=== PATIENT | female | born 1950 | race Caucasian/White ===

== ENCOUNTER 2024-08-16 08:09 | Outpatient (OUT) | payer MEDICARE, OTHER, SELFPAY ==
--- OUTSIDE RECORDS SUMMARY | 2024-03-17 06:00 | XMS_ITS ---
Author Organization The [facility] in [place] Address [address] [place] [address] Care Team Providers Care Grocery Store Clerk Name Role Phone Karlie Robles Primary Care Provider Allergies Allergen (clinical drug ingredient) Drug/Non Drug Allergy documented on EMR Reaction Allergy Type Onset Date Status atorvastatin Atorvastatin Calcium Myalgias Drug Allergy Active rosuvastatin Crestor Myalgias Drug Allergy Acti ve Lisinopril cough Drug Allergy Active pravastatin Pravastatin Sodium Myalgias Drug Allergy Active [...] in the morning Orally Daily Active Ergocalciferol 79445 IU 1 tablet Orally weekly for 30 [...] stable Encounters Encounter Location Date Provider Diagnosis [facility] [address] [place] [address] 03/17/2024 Karlie Robles Type 1 diabetes mellitus [...] Donnelly es, 10/12/2024 09:00:00 AM, [address] [place], [address], Progress Notes * Thania CURRIE LDOB:[birth year] (73 yo F)Acc No.[id number]:03/17/2024 Established Patient: Gianfranco Thania GARLAND Provider: Daniela Robles MD :1950 A ge:73 Y S ex:Female Date:03/17/2024 Address:[facility] [address], [place], [place]-[id number] Check In:10:02 AM ESTCheck O ut:10:51 AM [...] heart for calcium scoring soon, ordered by fabián. Will obtain from [facility] LDL from recent labs was elevated at 139. She did try zetia for 2 weeks after last visit - she states she noted SOB with it, and decided to stop it. States she had her mamm in October 2023, thru Dr. Montoya - we will obtain this from [facility] also. 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 Modified On:06/25/2020U Status:confirmed I10 Essential hypertensi on Modified On:11/24/2021 Status:confirmed Z68.34 BMI 34.0-34.9,adult Modified On:04/04/2019U Status:confirmed E66.9 Obesity (BMI 30-39.9 ) Modified On:07/30/2021 Status:confirmed Z68.36 BMI 36.0-36.9,adult Modified On:07/30/2021 Status:confirmed Z68.37 BMI 37.0-37.9, adult Modified On:11/24/2021 Status:confirmed G89.29 Other chronic pain Modified On:11/10/2022U Status:confirmed M25.561 Pain in right knee Modified On:12/01/2022 Status:confirmed * Medical History: * Surgical History: P artial hysterectomy - still has tubes and ovaries (Dr. Hayes) 2005Le Breast biopsy - DCIS (Dr. Pedro) 11/25Le Partial knee replacement (Dr. Jones - [place]) 03/29Lipoma removal ilat cataract removals 01/30 * Hospitalization/Major Diagno stic Procedure: N o Hospitalization History. * Family History: F ather: . M other: , Multiple Myloma, diagnosed with Other malignant neoplasm of unspecified site. 1 son(s) , 1 daughter(s) - healthy. . * Social History: T obacco Use: T obacco Use/Smoking P atient is a n onsmoker * Medications: T akingErgocalciferol 53639 IU Tablet 1 tablet Orally weekly Levothyroxine Sodium 137 MG Tablet 1 tablet on an empty stomach in the morning Orally Daily Multi Vitamin - Tablet 1 tablet Orally Once a day NovoLOG(Insulin Aspart) 100 UNIT/ML Solution as directed Subcutaneous Taking Ergocalciferol 75884 IU Tablet 1 tablet Orally weekly Taking [...] 03/17/2024 Generated for Prema garcia/Pollo/Enedinaitting on: 0 08/16/2024 08:16 AM EDT History and Physical Notes * [...]
--- OUTSIDE RECORDS SUMMARY | 2024-06-29 05:30 | XMS_ITS ---
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 Name Role Phone Karlie Robles Primary Care Provider [phone] Allergies Allergen (clinical drug ingredient) Drug/Non Drug Allergy documented on EMR Reaction Allergy Type Onset Date Status atorvastatin Atorvastatin Calcium Myalgias Drug Allergy Active rosuvastatin Crestor Myalgias Drug Allergy Acti ve Lisinopril cough Drug Allergy Active pravastatin Pravastatin Sodium Myalgias Drug Allergy Active simvastatin Simvastatin Myalgias Drug Allergy Act zulma tamoxifen Tamoxifen Citrate Flu-like symptoms Drug Allergy Active Reason For Referral Reason Eval and treat for H yperlipidemia, unable to tolerate statins - also diabetic Diagnosis 1 Mixed hyperlipidemia (E78.2) Referral Organization [facility] Referring Provider First Name Karlie Referring Provider Last Name Margaret Referring Provider Speciality [facility] Referred Provider Specialty Cardiology General Notes Karlie Robles 06:52:36 AM >Please refer to Cardio group in [place] (from [facility]), Karlie Robles 07/27/2024 06:52:59 AM >Attach most recent labs and most recent Endo note as well Referral Priority Routine REASON FOR VISIT MWV Medications Medication SIG (Take, Route, Frequency, Duration) Notes Start Date End Date Status Ergocalciferol 55267 IU 1 tablet Orally weekly for 30 days 03/20/2019 Not-Taking NovoLOG 100 UNIT/ML as directed Subcutaneous Active Multi Vitamin - 1 tablet Orally Once a day for 30 day(s) Active Levothyroxine Sodium 137 MG Tablet 1 tablet on an empty stomach in the morning Orally Daily Active Tresiba 100 UNIT/ML 40U if not on insuli n pump Subcutaneous PRN Not-Taking Social History Tobacco Use: Social History Observation Description Date Details (start date - stop date) Never Smoker NA - NA Tobacco Use/Smoking Question Answer Notes Patient is a nonsmoker Vital Signs Weight 218 lbs 06/29/2024 Height 63.50 in 06/29/2024 Blood pressure systolic 132 mm Hg 06/30/19 25 Blood pressure diastolic 68 mm Hg 025 Heart Rate 54 /min 06/29/2024 Respiratory Rate 16 /min 06/29/2024 BMI 38.01 kg/m2 06/29/2024 Oximetry 96 % 06/29/2024 Encounters Encounter Location Date Provider Diagnosis [facility] [address] [place] [address] 06/29/2024 Karlie Robles Type 1 diabetes mellitus with hyperglycemia E10.65 ; Other specified health status Z78.9 ; Mixed hyperlipidemia E78.2 ; Acquired hypothyroidism E03.9 ; Vitamin D deficiency E55.9 ; Pain in right knee M25.561 and Encounter for Medicare annual wellness exam Z00.00 Assessments Encounter Date Diagnosis (ICD Code) Assessment Notes Treatment Notes Treatment Clinical Notes Section Notes 06/29/2024 Type 1 diabetes mellitus with hyperglycemia (ICD-10 - E10.65) Stable, continue current meds, and follow up with Endocrinology as directed 06/29/2024 Other specified health status (ICD-10 - Z78.9) Unable to tolerate statins due to myalgias, with multiple statins! Refer to Cardio for further input, especially since you are a diabetic 06/29/2024 Mixed hyperlipidemia (ICD-10 - E78.2) Will refer to Cardio at [facility] [place] for further recommendations about cholesterol med, particularly since you are a diabetic! Unable to tolerate statins 06/29/2024 Acquired hypothyroidism (ICD-10 - E03.9) Stable, continue current med 06/29/2024 Vitamin D deficiency (ICD-10 - E55.9) Make sure you are taking a daily Vitamin D supplement, and consider checking Vit D with next labs 06/29/2024 Pain in right knee (ICD-10 - M25.561) Follow up with ortho about knee pain 06/29/2024 Encounter for Medicare annual wellness exam (ICD-10 - Z00.00) UTD with labs, mamm. Will be due for cologuard in December - order at next visit. Please update pneumonia vaccine at pharmacy at your convenience Plan Of Treatment Treatment Notes Assessment Notes Type 1 diabetes mellitus wit h hyperglycemia Stable, continue current meds, and follo w up with Endocrinology as directed Other specified health status Unable to tolerate statins due to myalgias, with multiple statins! Refer to Cardio for further input, especially since you are a diabetic Mixed hyperlipidemia Will refer to Cardio at [facility] for further recommendations about cholesterol med, particularly since you are a diabetic! Unable to tolerate statins Acquired hypothyroidism Stable, continue current med Vitamin D deficiency Make sure you are t aking a daily Vitamin D supplement, and consider checking Vit D with next labs Pain in right knee Follow up with ortho about knee pain Encounter for Medicare oliva luis wellness exam UTD with labs, mamm. Will be due for cologuard in December - order at next visit. Please update pneumonia vaccine at pharmacy at your convenience Referrals Referral Date Details 07/27/2024 07/27/2024, Eval and treat for Hyperlipidemia, unable to tolerate statins - also diabetic Next Appt Details Follow Up: 3-4 Months, Reaso n: DM, HLD Provider Name:Karlie Donnelly es, 10/12/2024 09:00:00 AM, [address] [place], [address], Progress Notes * Thania CURRIE LDOB:[birth year] (73 yo F)Acc No.[id number]:06/29/2024 Progress Note Patient: Thania DELGADILLO Provider: Daniela Robles MD :1950 A ge:73 Y S ex:Female Date:06/29/2024 Address:[facility] [address], [place] , [id number] Check In:09:30 AM ESTCheck O ut:10:27 AM EST Subjective: * Chief Complaints: * [place] * HPI: G eneral: patient presents today for medicare wellness visit, patinet states she seen endocrinology recently and they were concerned about her lab work - RM 73yo female presents for [facility] Endo is concerned about her LDL being way above goal and pt not being able to tolerate statin. Will refer to Cardio for further recommendation and treatment, likely with repatha or other new injectable - would like go to [place] Having more right knee pain - thinking about going back to ortho Has not been taking the Vitamin D weekly, just MV that has some Vit D in it. I encouraged her to add a Vit D3 daily - I dont' see that we have checked Vit D since 2020 Will be having Ambrosio procedure on left eye on September 05 Had mamm at [facility] in October 2023, by Dr. Montoya - just saw onc last week and will be having mamm in Nov Last cologuard was 12/30, so will be due in 01/02 Will be done babysitting for her grandkids. Doing well on pump. Gianfranco yo Annual Wellness Visit: Type of Visit: S karen Annual Wellness Visit (SAWV).? Visual Acuity: N /A. Other Providers of Care: C are Team reviewed with patient: Ana calvillo, and no updates needed Physical Activity: D o you exercise regularly? Y karli T ype of exercise: _ __ F requency: _ __ Nutrition/Diet: O n a typical day, how many servings of fruits and vegetables do you consume? 2 I n a typical week, how many servings of fried or high fat (such as cheese, fatty meat) do you consume? 3 I n a typical week, how many servings of high fiber or whole grain foods do you consume? 0 Seat Belt: D o you always use your seat belt in your car??No A re you having difficulties driving your car??No C an you get to places out of walking distance without help? Y es Dental: H ow would you describe the condition of your mouth and teeth, including any false teeth or dentures? G ood Medication List Follow-Up: D uring the past four weeks, how much bodily pain do you have? M ild pain D o you have a current opioid prescription??No Self Assessment of Health: H ow would you rate your overall health the past four weeks? G ood H ow confident are you that you can control and manage most of your health problems? V ysabel confident H ow have things been going for you during the past four weeks? Rylee ysabel well; could hardly be better D uring the past four weeks, was someone available to help you if you needed and wanted help? Y es, as much as I wanted (Example: if you felt nervous, lonely, or blue; got sick and had to stay in bed; needed someone to talk to; help with daily chores; or needed help just taking care of yourself) D o you have any sexual problems? N o D o you have any troubles eating well? N o D o you have any problems with tiredness or fatigue? N o H ave you noticed any hearing difficulties??Yes Sun Exposure: D o you protect yourself from over exposure to the sun when outdoors? Y es Mental Wellness: D uring the past four weeks, how much have you been bothered by emotional problems such as feeling anxious, depressed, irritable, sad, or downhearted and blue? S lightly D uring the past four weeks, has your physical and emotional health limited your social activities with family, friends, neighbors, or groups??Not at all Functional Ability and Safety Screening: D o you need assistance with any of the following? Select all that apply. N one D oes your home have rugs in the hallway, lack grab bars in the bathroom, lack handrails on the stairs or have poor lighting? N o D o you feel unsteady and/or dizzy when standing or walking? N o D o you have smoke detectors in your home and routinely change the batteries? Y es D o you have a fire extinguisher and know how to use it properly? Y es D o you have any problems with your living situation, food, transportation, utilities, or safety? N o Cognitive Screening: H ave you experienced any memory issues or problems with thinking? N o H ave your family members, friends, caretakers, or others raised any concerns? N o D o you get confused or easily distracted more than you used to? Y es H as your ability to concentrate seem to have declined recently? N o End of Life Planning: D o you have a living will? Y es D o you have a Durable Power of Outside Machinist Helper? Y es W ould you like to discuss this topic today??No SDOH A gree to complete Social Determinants of Health questionnaire Y es W ithin the past 12 months, did you worry that your food would run out before you got money to buy more? N o W ithin the past 12 months, did the food you bought just not last and you didn't have money to buy more? N o W ithin the past 12 months, have you ever stayed: outside, in a car, in a a tent, in an overnight intermediate, or temporarily in someone else's home??No A re you worried about losing your housing??No W ithin the past 12 months, have you been able to get utilities (heat, electricity) when it was really needed? Y es W ithin the past 12 months, has a lack of transportation kept you from medical appointments or from doing things needed for daily living? N o D o you feel physically or emotionally unsafe where you currently live? N o W ould you like help with any of these needs that you have identified? N o D epression Screening: PHQ-2 (2015 Edition) L ittle interest or pleasure in doing things??Not at all F eeling down, depressed, or hopeless? N ot at all T otal Score 0 * ROS: G eneral/Constitutional: Chills d enies. [...] Body aches D enies. P ainful joints a dmits. W eakness d enies. S kin: Rash d enies. N eurologic: Dizziness d enies. H eadache d enies. ? P sychiatric: Depression d enies. A nxiety d enies. D ifficulty sleeping d enies. 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 Modified On:06/25/2020U Status:confirmed I10 Essential hypertensi on Modified On:11/24/2021 Status:confirmed Z68.34 BMI 34.0-34.9,adult Modified On:04/04/2019 Status:confirmed E66.9 Obesity (BMI 30-39.9 ) Modified On:07/30/2021 Status:confirmed Z68.36 BMI 36.0-36.9,adult Modified On:07/30/2021 Status:confirmed Z68.37 BMI 37.0-37.9, adult Modified On:11/24/2021 Status:confirmed G89.29 Other chronic pain Modified On:11/10/2022 Status:confirmed M25.561 Pain in right knee Modified On:12/01/2022 Status:confirmed * Medical History: * Surgical History: P artial hysterectomy - still has tubes and ovaries (Dr. Hayes) 2005Left Breast biopsy - DCIS (Dr. Pedro) 11/25Le Partial knee replacement (Dr. Jones - [place]) 03/29Lipoma removal ilat cataract removals 01/30 * Hospitalization/Major Diagno stic Procedure: N o Hospitalization History. * Family History: F ather: . M other: , Multiple Myloma, diagnosed with Other malignant neoplasm of unspecified site. 1 son(s) , 1 daughter(s) - healthy. . * Social History: T obacco Use: T obacco Use/Smoking P atient is a n onsmoker * Medications: T akingLevothyroxine Sodium 137 MG Tablet 1 tablet on an empty stomach in the morning Orally Daily Multi Vitamin - Tablet 1 tablet Orally Once a day NovoLOG(Insulin Aspart) 100 UNIT/ML Solution as directed Subcutaneous Taking Levothyroxine Sodium 137 MG Tablet 1 tablet on an empty stomach in the morning Orally Daily Taking Multi Vitamin - Tablet 1 tablet Orally Once a day Taking NovoLOG(Insulin Aspart) 100 UNIT/ML Solution as directed Subcutaneous Not-Taking/PRNErgocalciferol 16153 IU Tablet 1 tablet Orally weekly Tresiba(Insulin Degludec) 100 UNIT/ML Solution 40U if not on insulin pump Subcutaneous PRN Medication List reviewed and reconciled with the patientNot-Taking/PRN Ergocalciferol 74394 IU Tablet 1 tablet Orally weekly Not-Taking/PRN Tresiba(Insulin Degludec) 100 UNIT/ML Solution 40U if not on insulin pump Subcutaneous PRN Medication List reviewed and reconciled with the patient * Allergies: T amoxifen Citrate: Flu-like symptoms - Side EffectsAtorvastatin Calcium: Myalgias - Side EffectsLisinopril: cough - Side EffectsPravastatin Sodium: Myalgias - Side EffectsSimvastatin: MyalgiasCrestor: Myalgiasno[Allergies Verified] Objective: * Vitals: W t:218lbs, Ht: 63.50 in, BP:132/68mm Hg, HR:54/min, RR:16/min, BMI:38.01Index, Oxygen sat %:96%, Ht-cm: 161.29 cm, Wt-k.88 kg. * Examination: G eneral Examination: GENERAL APPEARANCE: [...] with hyperglycemia - E10.65 (Primary) 2 . O ther specified health status - Z78.9 S pecify :Statin intolerance 3 . M ixed hyperlipidemia - E78.2 4 . A cquired hypothyroidism - E03.9 5 . V itamin D deficiency - E55.9 6 . P ain in right knee - M25.561 7 . E ncounter for Medicare annual wellness exam - Z00.00? Plan: * Treatment: 2. O ther specified health status Notes: Unable to tolerate statins due to myalgias, with multiple statins! Refer to Cardio for further input, especially since you are a diabetic 3. M ixed hyperlipidemia Notes: Will refer to Cardio at [facility] for further recommendations about cholesterol med, particularly since you are a diabetic! Unable to tolerate statins Referral To:Cardiology Reason:Eval and treat for Hyperlipidemia, unable to tolerate statins - also diabetic 4. A cquired hypothyroidism Notes: Stable, continue current med 5. V itamin D deficiency Notes: Make sure you are taking a daily Vitamin D supplement, and consider checking Vit D with next labs 6. P ain in right knee Notes: Follow up with ortho about knee pain 7. E ncounter for Medicare annual wellness exam Notes: UTD with labs, mamm. Will be due for cologuard in December - order at next visit. Please update pneumonia vaccine at pharmacy at your convenience * Procedure Codes: G 0439 ANNUAL WELLNESS, SUBSEQ * Preventive Medicine: Screenings/Counseling: F ALL RISK SCREENING Fall Risk Assessment: N o falls in the past year Are you afraid of falling? N o * Follow Up: 3 -4 Months (Reason: DM, HLD) * * Sign off status: Completed Visit Status: C HK (Check Out) true * Provider: Daniela Robles MD Date: 0 06/29/2024 Generated for Prema garcia/Pollo/Enedinaitting on: 0 08/16/2024 08:16 AM EDT History and Physical Notes * HPI (History of Present Illness) Category Sub-Category Detail Notes Category Not es Medicare Annual Wellness Visit Type of Visit: Subsequent Annual Wellness Visit (SAWV) Cognitive Screening: Have you experience d any memory issues or problems with thinking?: No Have your family members, fr iends, caretakers, or others raised any concerns?: No Do you get confused or easily distracted more than you used to?: Yes Has your ability to concentrate seem to have declined recently?: No Self Assessment of Health: How would you rate your overall health the past four weeks?: Good How confident are you that y ou can control and manage most of your health problems?: Very confident How have things been going f or you during the past four weeks?: Very well; could hardly be better During the past four weeks, was someone available to help you if you needed and wanted help?: Yes, as much as I wanted (Example: if you felt nervous, lonely, o r blue; got sick and had to stay in bed; needed someone to talk to; help with daily chores; or needed help just taking care of yourself) Do you have any sexual problems?: No Do you have any troubles eating well?: N o Do you have any problems wit h tiredness or fatigue?: No Have you noticed any hearing difficulties?: Yes Physical Activity: Do you exercise regularly?: Y es Type of exercise:: ___ Frequency:: ___ Functional Ability and Safety Screening: Do you need assistance with any of the following? Select all that apply.: None Does your home have rugs in the hallway, lack grab bars in the bathroom, lack handrails on the stairs or have poor lighting?: No Do you feel unsteady and/or dizzy when s tanding or walking?: No Do you have smoke detectors in your home and routinely change the batteries?: Yes Do you have a fire extinguisher and know how to use it properly?: Yes Do you have any problems wit h your living situation, food, transportation, utilities, or safety?: No Visual Acuity: N/A Nutrition/Diet: On a typical day, ho w many servings of fruits and vegetables do you consume?: 2 In a typical week, how many servings of fried or high fat (such as cheese, fatty meat) do you consume?: 3 In a typical week, how many servings of high fiber or whole grain foods do you consume?: 0 Seat Belt: Do you always use your seat belt in your car?: No Are you having difficulties driving your car?: No Can you get to places out of walking dis tance without help?: Yes Dental: How would you descri be the condition of your mouth and teeth, including any false teeth or dentures?: Good Medication List Follow-Up: During the four weeks, how much bodily pain do you have?: Mild pain Do you have a current opioid prescriptio n?: No Mental Wellness: During the past four weeks, how much have you been bothered by emotional problems such as feeling anxious, depressed, irritable, sad, or downhearted and blue?: Slightly During the past four weeks, has your physical and emotional health limited your social activities with family, friends, neighbors, or groups?: Not at all Sun Exposure: Do you protect yours elf from over exposure to the sun when outdoors?: Yes End of Life Planning: Do you have a living will? : Yes Do you have a Durable Power of Outside Machinist Helper? : Yes Would you like to discuss this topic tod ay?: No Other Providers of Care: Care Team mary bee with patient:: Yes, and no updates needed SDOH Agree to complete [facility] Determinants of Health questionnaire: Yes Within the past 12 months, did you worry that your food would run out before you got money to buy more?: No Within the past 12 months, did the food you bought just not last and you didn't have money to buy more?: No Within the past 12 months, have you ever stayed: outside, in a car, in a a tent, in an overnight intermediate, or temporarily in someone else's home?: No Are you worried about losing your housing?: No Within the past 12 months, have you been able to get utilities (heat, electricity) when it was really needed?: Yes Within the past 12 months, has a lack of transportation kept you from medical appointments or from doing things needed for daily living?: No Do you feel physically or emotionally unsafe where you currently live?: No Would you like help with any of these needs that you have identified?: No Depression Screening PHQ-2 (2015 Edition) Little interest or pleasure in doing things?: Not at all Feeling down, depressed, or hopeless?: N ot at all Total Score: 0 Examination Category Sub-Category Detail Notes Category Not [...] NEUROLOGIC/PSYCHIATRIC: Alert, Oriented, mood and affect appropriate Consultation Request Notes Referral Date Referring Provider Referred Provider Not es 07/27/2024 Karlie Robles Eval and disha velasquez for Hyperlipidemia, unable to tolerate statins - also diabetic
--- OUTSIDE RECORDS SUMMARY | 2024-08-01 09:39 | XMS_ITS ---
Author Organization [facility] in [place] Address [address] [place] [address] Care Team Providers Care Quill Cleaning Machine Operator Name Role Phone Karlie Robles Primary Care Provider REASON FOR VISIT referral issue Encounters Encounter Location Date Provider Diagnosis [facility] [address] [place] [address] 08/01/2024 Karlie Robles Plan Of Treatment Next Appt Details Provider Name:Karlie Donnelly es, 10/12/2024 09:00:00 AM, [address] [place], [address], Progress Notes * Thania CURRIE LDOB:[birth year] (73 yo F)Acc No.[id number]:08/01/2024 Patient: Gianfranco Thania GAR[place] :1950 A ge:73 Y S ex:Female Address:[place] [address] * true * Date: Generated for Printi ng/Faxing/eTransmitting on: 0 08/16/2024 08:16 AM EDT
--- OUTSIDE RECORDS SUMMARY | 2024-08-16 08:17 | XMS_ITS | Patient Health Record ---
Author Organization [facility] in [place] Address [address] [place] [address] Care Team Providers Care Furniture Cleaner Name Role Phone Karlie Robles Primary Care Provider Allergies Allergen (clinical drug ingredient) Drug/Non Drug Allergy documented on EMR Reaction Allergy Type Onset Date Status Atorvastatin Calcium Myalgias Drug Allergy Active Crestor Myalgias Drug Allergy Active Lisinopril cough Drug Allergy Active Pravastatin Sodium Myalgias Drug Allergy Active Simvastatin Myalgias Drug Allergy Activ e Tamoxifen Citrate Flu-like symptoms Drug Allergy Active Reason For Referral Reason Eval and treat for H yperlipidemia, unable to tolerate statins - also diabetic Diagnosis 1 Mixed hyperlipidemia (E78.2) Referral Organization [facility] Referring Provider First Name Karlie Referring Provider Last Name Margaret Referring Provider Speciality [facility] Referred Provider Specialty Cardiology General Notes Karlie Robles 06:52:36 AM >Please refer to Cardio group in [place] (from [facility]), Karlie Robles 07/27/2024 06:52:59 AM >Attach most recent labs and most recent Endo note as well Referral Priority Routine Medications Medication SIG (Take, Route, Frequency, Duration) Notes Start Date End Date Status Ergocalciferol 16294 IU 1 tablet Orally weekly for 30 days 03/20/2019 Not-Taking NovoLOG 100 UNIT/ML as directed Subcutaneous Active Multi Vitamin - 1 tablet Orally Once a day for 30 day(s) Active Levothyroxine Sodium 137 MG Tablet 1 tablet on an empty stomach in the morning Orally Daily Active Tresiba 100 UNIT/ML 40U if not on insuli n pump Subcutaneous PRN Not-Taking Immunizations Vaccine Route Administration Date Status Comme nts Pneumococcal (Pneumovax 23) Unknown 12/07/2016 Administ ered Pneumococcal (Prevnar 13) Unknown 12/05/2015 Administer ed Tdap Unknown 07/23/2021 Administered given in ER Social History Tobacco Use: Social History Observation Description Date Details (start date - stop date) Never Smoker NA - NA Tobacco Use/Smoking Question Answer Notes Patient is a nonsmoker Alcohol Screen (Audit-C) Question Answer Notes Did you have a drink containing alcohol in the p ast year? No Points 0 Interpretation Negative Problems Problem Type SNOMED Code ICD Code Onset Dates Problem Status W/U Status Risk Notes Problem 473488682840931 Type 1 diabetes mellitus with hyperglycemia (E10.65) Active confirmed Problem 311041752 Mixed hyperlipidemia (E78.2) Active confirmed Problem 91037382 Other chronic pa in (G89.29) Active confirmed Problem 2467691052 Pain in right kn ee (M25.561) Active confirmed Problem 91164921 Essential hypertension (I10) Active confirmed Problem 240625532 Obesity (BMI 30-39.9) (E66.9) Active confirmed Problem 98782959 Vitamin D deficiency (E55.9) Active confirmed Problem 360827525 BMI 37.0-37.9, adult (Z68.37) Active confirmed Problem 260893179 Acquired hypothyroidism (E03.9) Active confirmed Problem 304767220 BMI 34.0-34.9,adult (Z68.34) Active confirmed Problem 641538452 BMI 36.0-36.9,adult (Z68.36) Active confirmed Problem 332224977 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 [address] [place] [address] [facility] [address] [place] [address] 11/03/2023 Karlie Robles Type 1 diabetes mellitus with hyperglycemia E10.65 ; Mixed hyperlipidemia E78.2 ; Acquired hypothyroidism E03.9 and 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 [facility] [address] [place] [address] 03/17/2024 Karlie Robles Type 1 diabetes mellitus with hyperglycemia E10.65 ; Mixed hyperlipidemia E78.2 ; Acquired hypothyroidism E03.9 and 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 [facility] [address] [place] [address] 06/29/2024 Karlie Robles Type 1 diabetes mellitus with hyperglycemia E10.65 ; Other specified health status Z78.9 ; Mixed hyperlipidemia E78.2 ; Acquired hypothyroidism E03.9 ; Vitamin D deficiency E55.9 ; Pain in right knee M25.561 and Encounter for Medicare annual wellness exam Z00.00 Assessments Encounter Date Diagnosis (ICD Code) Assessment Notes Treatment Notes Treatment Clinical Notes Section Notes 11/03/2023 Type 1 diabetes mellitus with hyperglycemia (ICD-10 - E10.65) Improving,Continue to follow up with endocrinology 11/03/2023 Mixed hyperlipidemia (ICD-10 - E78.2) Encouraged pt to try the zetia daily for at least 1 to 2 weeks, to really give it a try. -discussed again that it is a different class of cholesterol med, NOT a statin like the other meds that she has had trouble with in the past. -Get bloodwork after taking the med for 2-3months (or before next visit) 03/17/2024 Type 1 diabetes mellitus with hyperglycemia (ICD-10 - E10.65) Continue current management and follow up with Endo as directed We will be watching for the CT for calcium score 03/17/2024 Mixed hyperlipidemia (ICD-10 - E78.2) May need to refer on to cardio if calcium score is high to discuss other options for cholesterol control, with your diabetes 06/29/2024 Type 1 diabetes mellitus with hyperglycemia (ICD-10 - E10.65) Stable, continue current meds, and follow up with Endocrinology as directed 06/29/2024 Other specified health status (ICD-10 - Z78.9) Unable to tolerate statins due to myalgias, with multiple statins! Refer to Cardio for further input, especially since you are a diabetic 06/29/2024 Mixed hyperlipidemia (ICD-10 - E78.2) Will refer to Cardio at [place] for further recommendations about cholesterol med, particularly since you are a diabetic! 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 (ICD-10 - D17.1) Stable, continue to monitor 06/29/2024 Acquired hypothyroidism (ICD-10 - E03.9) Stable, [...] pharmacy at your convenience Plan Of Treatment Pending Test Test Name Order Date LIPID PANEL (CHOL/TRIG/HDL/LDL) 06/24/19 24 Next Appt Details Provider Name:Karlie calvillo, 10/12/2024 09:00:00 AM, [address] [facility] [place], [address], Insurance Providers Payer Name Payer Address Payer Phone Subscriber Number Group Number Insured Name Patient Relationship to Insured Coverage Start Date Coverage End Date [place] [address] [place] [address] [id number] Thania Spicer Self - patient is the insured 9 MMO [address] [place], [place] [id number] Thania Spicer Self - patient is the insured 9 Medical (General) History Medical History History ICD Code Diabetes type 1 - Sees [facility] DCIS of left breast, ERPR+, 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 Hayes) 2005 Left Breast biopsy - DCIS (Dr. Pedro) 1 Left Partial knee replacement (Dr. Inna barros - [place]) 03/29 Lipoma removal 2021 Bilat cataract removals 01/30
[2024-08-16 08:56] LABS: Alanine Aminotransferase 23 U/L (14-59); Albumin Globulin Ratio 0.9; Albumin Level 3.1 g/dL (3.4-5.0); Alkaline Phosphatase 94 U/L (46-116); Anion Gap 13.9; Aspartate Amino Transferase 15 U/L (15-37); Blood Urea Nitrogen 20.0 mg/dL (7.0-18.0); Calcium 9.0 mg/dL (8.5-10.1); Carbon Dioxide 27.9 mmol/L (21.0-32.0); Chloride 108 mmol/L (98-107); Cholesterol 202 mg/dL (<=200); Estimated GFR (African America >60 (>=60 mL/min/1.73m^2); Estimated GFR (Non-African Ame >60 (>=60 mL/min/1.73m^2); Globulin 3.6 g/dL; Glucose 123 mg/dL (74-106); HDL Cholesterol 41 mg/dL (40-60); Potassium 3.8 mmol/L (3.5-5.1); Sodium 146 mmol/L (136-145); Total Protein 6.7 g/dL (6.4-8.2); Triglycerides 145 mg/dL (<=150); VLDL CHOLESTEROL 29.0 mg/dL
== END 2024-08-16 08:10 | disposition home or self-care (01) ==
PROVIDERS: PCP Family Medicine; Visit Provider Internal Medicine Interventional Cardiology
DX: E78.2 Mixed hyperlipidemia (principal)
CPT/HCPCS: 36415; 80053; 80061

== ENCOUNTER 2024-08-22 12:19 | Outpatient (OUT) | payer MEDICARE, OTHER, SELFPAY ==
--- OUTSIDE RECORDS SUMMARY | 2024-03-17 06:00 | XMS_ITS ---
Author Organization The [facility] in [place] Address [address] [place] [address] Care Team Providers Care Museum Host/Hostess Name Role Phone Karlie Robles Primary Care Provider Allergies Allergen (clinical drug ingredient) Drug/Non Drug Allergy documented on EMR Reaction Allergy Type Onset Date Status atorvastatin Atorvastatin Calcium Myalgias Drug Allergy Active rosuvastatin Crestor Myalgias Drug Allergy Acti ve lisinopril Lisinopril cough Drug Allergy Activ e pravastatin Pravastatin Sodium Myalgias Drug Allergy Active simvastatin Simvastatin Myalgias Drug Allergy Act zulma tamoxifen Tamoxifen Citrate Flu-like symptoms Drug Allergy Active REASON FOR VISIT 3 month follow up Medications Medication SIG (Take, Route, Frequency, Duration) Notes Start Date End Date Status Tresiba 100 UNIT/ML 40U if not on insuli n pump Subcutaneous PRN Not-Taking Multi Vitamin - 1 tablet Orally Once a day for 30 day(s) Active NovoLOG 100 UNIT/ML as directed Subcutaneous Active Levothyroxine Sodium 137 MG Tablet 1 tablet on an empty stomach in the morning Orally Daily Active Ergocalciferol 54550 IU 1 tablet Orally weekly for 30 days 03/20/2019 Active Social History Tobacco Use: Social History Observation Description Date Details (start date - stop date) Never Smoker NA - NA Tobacco Use/Smoking Question Answer Notes Patient is a nonsmoker Vital Signs Weight 218 lbs 03/17/2024 Height 63.50 in 03/17/2024 Blood pressure systolic 138 mm Hg 03/17/19 25 Blood pressure diastolic 62 mm Hg 025 Heart Rate 74 /min 03/17/2024 Respiratory Rate 16 /min 03/17/2024 BMI 38.01 kg/m2 03/17/2024 Oximetry 95 % 03/17/2024 weight and bp stable Encounters Encounter Location Date Provider Diagnosis [facility] [address] [place] [address] 03/17/2024 Karlie Robles Type 1 diabetes mellitus with hyperglycemia E10.65 ; Mixed hyperlipidemia E78.2 ; Acquired hypothyroidism E03.9 and 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 Assessments Encounter Date Diagnosis (ICD Code) Assessment Notes Treatment Notes Treatment Clinical Notes Section Notes 03/17/2024 Type 1 diabetes mellitus with hyperglycemia (ICD-10 - E10.65) Continue current management and follow up with Endo as directed We will be watching for the CT for calcium score 03/17/2024 Mixed hyperlipidemia (ICD-10 - E78.2) May need to refer on to cardio if calcium score is high to discuss other options for cholesterol control, with your diabetes 03/17/2024 Acquired hypothyroidism (ICD-10 - E03.9) Stable 03/17/2024 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 (ICD-10 - D17.1) Stable, continue to monitor Plan Of Treatment Treatment Notes Assessment Notes Type 1 diabetes mellitus with hyperglyce kana Continue current management and follow up with Endo as directed We will be watching for the CT for calcium score Mixed hyperlipidemia May need to refer o n to cardio if calcium score is high to discuss other options for cholesterol control, with your diabetes Acquired hypothyroidism Stable Benign lipomatous neoplasm o f skin and subcutaneous tissue of trunk Stable, continue to monitor Next Appt Details Follow Up: 3 Months, sooner if needed, Reason: DM, HLD Provider Name:Karlie Donnelly es, 10/12/2024 09:00:00 AM, [address] [place], [address], Progress Notes * Thania CURRIE LDOB:[birth year] (73 yo F)Acc No.[id number]:03/17/2024 Established Patient: Thania DELGADILLO Provider: Daniela Robles MD :1950 A ge:73 Y S ex:Female Date:03/17/2024 Address:[address] [place] [address] , [place], [id number] Check In:10:02 AM ESTCheck O ut:10:51 AM EST Subjective: * Chief Complaints: * 3 month follow up * HPI: G eneral: Patient presents today for 3 month follow up. Patient states she recently had labs done with endo(labs in chart). She also states she has a CT calcium scoring coming up.-MV 73yo female presents for 4month follow up. Had recent labs thru Endo and brought those results for us Will be having a CT heart for calcium scoring soon, ordered by endo. Will obtain from [facility] LDL from recent labs was elevated at 139. She did try zetia for 2 weeks after last visit - she states she noted SOB with it, and decided to stop it. States she had her mamm in October 2023, thru Dr. Montoya - we will obtain this from [facility] also. * ROS: G eneral/Constitutional: Chills d enies. F atigue d enies. F ever d enies. H EENT: Nasal congestion d enies. S ore throat d enies.?Runny Nose D enies. E ar Pain D enies. C ardiovascular: Lower Extremity Edema d enies. C hest pain d enies.?Palpitations d enies. R espiratory: Cough d enies. S hortness of breath d enies. W heezing d enies. G astrointestinal: Abdominal pain d enies. C onstipation d enies. D iarrhea d enies. N ausea d enies. G enitourinary: Urgency d enies. F requent urination d enies. P ainful urination d enies. M usculoskeletal: Body aches D enies. P ainful joints d enies. W eakness d enies. S kin: Rash d enies. N eurologic: Dizziness d enies. H eadache d enies. ? P sychiatric: Depression d enies. A nxiety d enies. D ifficulty sleeping d enies. 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 Modified On:06/25/2020 Status:confirmed I10 Essential hypertensi on Modified On:11/24/2021 Status:confirmed Z68.34 BMI 34.0-34.9,adult Modified On:04/04/2019U Status:confirmed E66.9 Obesity (BMI 30-39.9 ) Modified On:07/30/2021 Status:confirmed Z68.36 BMI 36.0-36.9,adult Modified On:07/30/2021 Status:confirmed Z68.37 BMI 37.0-37.9, adult Modified On:11/24/2021 Status:confirmed G89.29 Other chronic pain Modified On:11/10/2022 Status:confirmed M25.561 Pain in right knee Modified On:12/01/2022 Status:confirmed * Medical History: * Surgical History: P artial hysterectomy - still has tubes and ovaries (Dr. Hayes) 2005Le Breast biopsy - DCIS (Dr. Pedro) 11/25Le Partial knee replacement (Dr. Jones - [place]) 03/29Lipoma removal ilat cataract removals 01/30 * Hospitalization/Major Diagno stic Procedure: N o Hospitalization History. * Family History: F ather: . M other: , Multiple Myloma, diagnosed with Other malignant neoplasm of unspecified site. 1 son(s) , 1 daughter(s) - healthy. . * Social History: T obacco Use: T obacco Use/Smoking P atient is a n onsmoker * Medications: T akingErgocalciferol 51894 IU Tablet 1 tablet Orally weekly Levothyroxine Sodium 137 MG Tablet 1 tablet on an empty stomach in the morning Orally Daily Multi Vitamin - Tablet 1 tablet Orally Once a day NovoLOG(Insulin Aspart) 100 UNIT/ML Solution as directed Subcutaneous Taking Ergocalciferol 96881 IU Tablet 1 tablet Orally weekly Taking Levothyroxine Sodium 137 MG Tablet 1 tablet on an empty stomach in the morning Orally Daily Taking Multi Vitamin - Tablet 1 tablet Orally Once a day Taking NovoLOG(Insulin Aspart) 100 UNIT/ML Solution as directed Subcutaneous Not-Taking/PRNTresiba(Insulin Degludec) 100 UNIT/ML Solution 40U if not on insulin pump Subcutaneous PRN Not-Taking/PRN Tresiba(Insulin Degludec) 100 UNIT/ML Solution 40U if not on insulin pump Subcutaneous PRN DiscontinuedEzetimibe 10 MG Tablet 1 tablet Orally Once a day Medication List reviewed and reconciled with the patientDiscontinued Ezetimibe 10 MG Tablet 1 tablet Orally Once a day Medication List reviewed and reconciled with the patient * Allergies: T amoxifen Citrate: Flu-like symptoms - Side EffectsAtorvastatin Calcium: Myalgias - Side EffectsLisinopril: cough - Side EffectsPravastatin Sodium: Myalgias - Side EffectsSimvastatin: MyalgiasCrestor: Myalgiasno[Allergies Verified] Objective: * Vitals: W t:218lbs, Ht: 63.50 in, BP:138/62mm Hg, HR:74/min, RR:16/min, BMI:38.01Index, Oxygen sat %:95%, Ht-cm: 161.29 cm, Wt-k.88 kg. weight and bp stable. * Examination: G eneral Examination: GENERAL APPEARANCE: N o acute distress, Well hydrated, Well Developed. NECK: N alicia supple, No thyromegaly, No cervical LAD. LUNGS: C lear to auscultation bilaterally, No wheezes, rales, rhonchi. CARDIO: R egular rate and rhythm, No murmurs, rubs, gallops. ABDOMEN: S oft, nontender, not distended, normal bowel sounds. SKIN: L ump under skin (not raised), right low back - mildly tender to palpation, consistent with lipoma. EXTREMITIES: No edema. NEUROLOGIC/PSYCHIATRIC: A lert, Oriented,mood and affect appropriate. Assessment: * Assessment: 1. T ype 1 diabetes mellitus with hyperglycemia - E10.65 (Primary) 2 . M ixed hyperlipidemia - E78.2 3 . A cquired hypothyroidism - E03.9 4 . B enign lipomatous neoplasm of skin and subcutaneous tissue of trunk - D17.1 Plan: * Treatment: 2. M ixed hyperlipidemia Notes: May need to refer on to cardio if calcium score is high to discuss other options for cholesterol control, with your diabetes 3. A cquired hypothyroidism Notes: Stable 4. B enign lipomatous neoplasm of skin and subcutaneous tissue of trunk Notes: Stable, continue to monitor * Procedure Codes: * Follow Up: 3 Months, sooner if needed (Reason: DM, HLD) * * Sign off status: Completed Visit Status: C HK (Check Out) true * Provider: Daniela Robles MD Date: 0 03/17/2024 Generated for Prema garcia/Pollo/Enedinaitting on: 0 08/22/2024 12:22 PM EDT History and Physical Notes * Examination Category Sub-Category Detail Notes Category Not es General Examination GENERAL APPEARANCE: No acute distress, Well hydrated, Well Developed NECK: Neck supple, No thyr omegaly, No cervical LAD CARDIO: Regular rate and rhy thm, No murmurs, rubs, gallops LUNGS: Clear to auscultatio n bilaterally, No wheezes, rales, rhonchi ABDOMEN: Soft, nontender, not distended, normal bowel sounds SKIN: Lump under skin (not raised), right low back - mildly tender to palpation, consistent with lipoma EXTREMITIES: No edema ENMT: NEUROLOGIC/PSYCHIATRIC: Alert, Oriented, mood and affect appropriate
--- OUTSIDE RECORDS SUMMARY | 2024-06-29 05:30 | XMS_ITS ---
Author Organization [facility] in [place] Address [address] [place] [address] Care Team Providers Care Tax Form Preparer Name Role Phone Karlie Robles Primary Care Provider [phone] Allergies Allergen (clinical drug ingredient) Drug/Non Drug [...] 1 Mixed hyperlipidemia (E78.2) Referral Organization [facility] Referring Provider First Name Karlie Referring Provider Last Name Margaret Referring Provider Speciality [facility] Referred Provider Specialty Cardiology General Notes Karlie Robles 06:52:36 AM >Please refer to Cardio group in [place] (from [facility]), Karlie Robles 07/27/2024 06:52:59 AM >Attach most recent labs and most recent Endo note as well Referral Priority Routine REASON FOR VISIT MWV Medications Medication SIG (Take, Route, Frequency, Duration) Notes Start Date End Date Status Ergocalciferol 79913 IU 1 tablet Orally weekly for 30 [...] 06/29/2024 Encounters Encounter Location Date Provider Diagnosis [facility] [address] [place] [address] 06/29/2024 Karlieher Robles Type 1 diabetes mellitus [...] - E78.2) Will refer to Cardio at [place] for further recommendations about cholesterol med, particularly [...] Mixed hyperlipidemia Will refer to Cardio at [place] for further recommendations about cholesterol med, particularly [...] Donnelly es, 10/12/2024 09:00:00 AM, [address] [place], [address], Progress Notes * Thania CURRIE LDOB:[birth year] (73 yo F)Acc No.[id number]:06/29/2024 Progress Note Patient: Thania DELGADILLO Provider: Daniela Robles MD :1950 A ge:73 Y S ex:Female Date:06/29/2024 Address:[facility] [address], [facility], [id number] Check In:09:30 AM ESTCheck O ut:10:27 AM [...] eye on September 05 Had mamm at [facility] in October 2023, by Dr. Montoya - just saw onc last week and will be having mamm in Nov Last cologuard was 12/30, so will be due in 01/02 Will be done babysitting for her grandkids. Doing well on pump. Gianfranco yo Annual Wellness Visit: [place] of [place] [facility] [place] ([place]WV[place]? Visual Acuity: N [...] o you have a Durable Power of Log Haul Operator? Y es W ould you like to [...] in a a tent, in an overnight chcf, or temporarily in someone else's home??No A [...] (Dr. Pedro) 11/25Le Partial knee replacement (Dr. Joens - [place]) 03/29Lipoma removal ilat cataract removals 01/30 * [...] 100 UNIT/ML Solution as directed Subcutaneous Not-Taking/PRNErgocalciferol 20389 IU Tablet 1 tablet Orally weekly Tresiba(Insulin Degludec) 100 UNIT/ML Solution 40U if not on insulin pump Subcutaneous PRN Medication List reviewed and reconciled with the patientNot-Taking/PRN Ergocalciferol 07392 IU Tablet 1 tablet Orally weekly Not-Taking/PRN [...] hyperlipidemia Notes: Will refer to Cardio at [place] for further recommendations about cholesterol med, particularly [...] 06/29/2024 Generated for Prema garcia/Pollo/Enedinaitting on: 0 08/22/2024 12:23 PM EDT History and Physical Notes * HPI [...] Do you have a Durable Power of Log Haul Operator? : Yes Would you like to discuss this topic tod ay?: No Other Providers of Care: Care Team mary bee with patient:: Yes, and no updates needed SDOH Agree to complete So [facility] Determinants of Health questionnaire: Yes Within the [...] in a a tent, in an overnight chcf, or temporarily in someone else's home?: No [...]
--- OUTSIDE RECORDS SUMMARY | 2024-08-01 09:39 | XMS_ITS ---
Author Organization [facility] in [place] Address [address] [place] [address] Care Team Providers Care Molecular Physicist Name Role Phone Karlie Robles Primary Care Provider REASON FOR VISIT referral issue Encounters Encounter Location Date Provider Diagnosis [facility] [address] [place] [address] 08/01/2024 Karlie Robles Plan Of Treatment Next Appt Details Provider Name:Karlie Donnelly es, 10/12/2024 09:00:00 AM, [address] [place], [address], Progress Notes * Thania CURRIE LDOB:[birth year] (73 yo F)Acc No.[id number]:08/01/2024 Patient: Gianfranco Thania GARLAND :1950 A ge:73 Y S ex:Female [facility] [place] [address] * true * Date: Generated for Printi ng/Faxing/eTransmitting on: 0 08/22/2024 12:22 PM EDT
--- OUTSIDE RECORDS SUMMARY | 2024-08-22 11:30 | XMS_ITS | Encounter Summary ---
Author Organization The [facility] Address [address] [place] [address] Care Team Providers Care Fish Machine Feeder Name Role Phone Karlie Robles MD Primary Care Provider [phone] Reason for Referral * Imaging (Routine) - Pending Review Specialty Diagnoses / Procedures Referred By Contac t Referred To Contact Cardiology Diagnoses GARZA (dyspnea on exertion) Other chest pain Procedures Transthoracic echo (TTE) complete Elsa Ro MD [address] [place] [address] Phone: tel: fax: Referral ID Status Reason Start Date Expiration Date Visits Requested Visits Authorized [id number] Pending Review Perform Procedure 08/22/2024 08/22/2025 1 1 * (Routine) - Pending Review Specialty Diagnoses / Procedures Referred By Joan varela Referred To Contact Diagnoses GARZA (dyspnea on exertion) Procedures ECG 12 lead unit performed Elsa Ro MD [address] [place] [address] Phone: tel: fax: Referral ID Status Reason Start Date Expiration Date V isits Requested Visits Authorized [id number] Pending Review 08/22/2024 08/22/2025 1 1 Encounter Details Date Type Department Care Team (Late st Contact Info) Description 08/22/2024 11:30 AM EDT Office Visit [facility] [address] [place] [address] Elsa Ro MD [address] [place] [address] GARZA (dyspnea on exertion) (Primary Dx); Other chest pain; Mixed hyperlipidemia Social History Tobacco Use Types Packs/Day Years Used Date Smoking Tobacco: Former Cigarettes Smokeless Tobacco: Never Tobacco Cessation:Counseling Given: Not Answered Alcohol Use Standard Drinks/Week Comments Not Currently 0 (1 standard drink = 0.6 oz pur e alcohol) Comments Unknown Sex and Gender Information Value Date Recorded Sex Assigned at Female 08/16/2024 11:04 AM EDT Legal Sex Female 11:57 PM EDT Gender Identity Female 08/16/2024 11:04 AM EDT Sexual Orientation Heterosexual or Straight 10/2024 11:04 AM EDT documented as of this encounter Last Filed Vital Signs Vital Sign Reading Time Taken Comments Blood Pressure 157/75 08/22/2024 11:43 AM EDT Pulse 61 08/22/2024 11:43 AM EDT Temperature - - Respiratory Rate - - Oxygen Saturation 94% 08/22/2024 11:43 AM EDT Inhaled Oxygen Concentration - - Weight 99.3 kg (219 lb) 08/22/2024 11:43 AM EDT Height 161.3 cm (5' 3.5 ) 08/22/2024 11:43 AM ED T Body Mass Index 38.19 08/22/2024 11:43 AM EDT documented in this encounter Plan of Treatment Upcoming Encounters Date Type Department Care Team (Late st Contact Info) Description 11/06/2024 11:15 AM EDT Office Visit [facility] [address] [place] [facility] [place] [address] Elsa Ro MD [address] [place] [address] Scheduled Orders Name Type Priority Associated Diagnoses Order Schedule B-type natriuretic peptide Lab Routine GARZA (dyspnea on exertion) Other chest pain Expected: 08/22/2024 (Approximate), Expires: 08/22/2025 CBC and differential Lab Routine GARZA (dyspnea on exertion) Other chest pain Expected: 08/22/2024 (Approximate), Expires: 08/22/2025 Transthoracic echo (TTE) complete Echocardiography Routine GARZA (dyspnea on exertion) Other chest pain Expected: 08/22/2024 (Approximate), Expires: 08/22/2026 Lexiscan Stress Myocardial Perfusion Imaging Cardiac Services Routine GARZA (dyspnea on exertion) Other chest pain Expected: 08/22/2024 (Approximate), Expires: 08/22/2026 documented as of this encounter Procedures Procedure Name Priority Date/Time Associated Diagnosis Comments ECG 12 LEAD UNIT PERFORMED Routine 08/22/2024 11:53 AM EDT GARZA (dyspnea on exertion) documented in this encounter Results * ECG 12 lead unit performed (08/22/2024 11:53 AM EDT) Ehab Jia BENSON ECG ORDERABLES Final Result documented in this encounter Visit Diagnoses Diagnosis GARZA (dyspnea on exertion)- Primary Other dyspnea and respiratory abnormality Other chest pain Mixed hyperlipidemia documented in this encounter Care Teams Fish Machine Feeder Relationship Specialty Start Date End Date Karlie Robles MD [address] [place] [phone] PCP - General Family Medicine 07/31/24 documented as of this encounter
--- OUTSIDE RECORDS SUMMARY | 2024-08-22 12:23 | XMS_ITS | Clinical Summary ---
Author Organization [facility] Address [address] [place] [address] Care Team Providers Care Supervisor Facepiece Line Name Role Phone Karlie Robles MD Primary Care Provider [phone] Allergies Active Allergy Reactions Criticality Noted Date Comments Lisinopril Cough 01/13/2023 Rosuvastatin Other 06/22/2024 Simvastatin Other 06/22/2024 Tamoxifen Citrate Other 01/13/2023 Medications NovoLOG U-100 Insulin aspart 100 unit/mL injection vial as directed Subcutaneous 10/04/19 18 Active insulin degludec (Tresiba U-100 Insulin) 100 unit/mL injection vial 40U if not on insulin pump Subcutaneous PRN Active levothyroxine (Synthroid, Levoxyl) 137 mcg tablet Take 137 mcg by mouth in the morning. 10/02/19 18 Active alirocumab (Praluent Pen) 75 mg/mL pen injectorIndication s:Mixed hyperlipidemia Inject 1 mL under the skin every 14 (fourteen) days. 6 mL 3 08/23/19 25 Active Active Problems Problem Noted Date Diagnosed Date Essential hypertension 03/07/2018 Severe obesity (BMI 35.0-39.9) with comorbidity 03/07/2018 Type 1 diabetes mellitus wit h retinopathy, with long-term current use of insulin 03/07/2018 Vitamin D deficiency 03/07/2018 Ductal carcinoma in situ (DCIS) of left breast 0 10/25/2017 Abnormal mammogram of left breast 10/12/2017 Acquired trigger finger 09/09/2016 Dupuytren's disease of palm 09/09/2016 Hypothyroidism 09/09/2016 Left knee pain 06/18/2015 Osteoarthritis of left knee 06/18/2015 Encounters Date Type Department Care Team Description 08/22/2024 11:30 AM EDT Office Visit [facility] [address] [place] [address] Elsa Ro MD DOE (dyspnea on exertion) (Primary Dx); Other chest pain; Mixed hyperlipidemia 07/31/2024 Orders Only [facility] [address] [place] [facility] [place] [address] Avelina White MA Mixed hyperlipidemia (Primary Dx) from Last 3 Months Family History Medical History Relation Name Comments No Known Problems Father No Known Problems Mother Relation Name Status Comments Father Mother Social History Tobacco Use Types Packs/Day Years [...] Heterosexual or Straight 10/2024 11:04 AM EDT Last Filed Vital Signs Vital Sign Reading [...] Mass Index 38.19 08/22/2024 11:43 AM EDT Plan of Treatment Upcoming Encounters Date Type Department Care Team (Late st Contact Info) Description 11/06/2024 11:15 AM EDT Office Visit [facility] [address] [place] [address] Elsa Ro MD [address] [facility] [address] [facility] [place] [address] Health Maintenance Due Date Last Done Comments CT Colonography 1950 Colonoscopy 1950 Diabetes: Hemoglobin A1C 1950 FIT-DNA 1950 FOBT 1950 Medicare Annual Wellness (AWV) 1950 Sigmoidoscopy 1950 Diabetes: Retinopathy Screening 1960 Depression Screening 1962 Diabetes: Urine Protein Screening 1969 Zoster Vaccines (1 of 2) 2000 Fall Risk Screening 09/01/2015 Colorectal Cancer Screening 12/03/2022 FIT 12/03/2022 12/03/2021 COVID-19 Vaccine (2023-2 5 season) 2023 Influenza Vaccine (#1) 2024 Mammogram 11/14/2025 11/15/2023 Adult Tetanus 07/24/2031 07/23/2021 Pneumococcal Vaccine: 50+ Years Completed 12/07/2016, 12/05/2015 HIB Vaccines Aged Out No longer eligi ble based on patient's age to complete this topic HPV Vaccines Aged Out No longer eligi ble based on patient's age to complete this topic IPV Vaccines Aged Out No longer eligi ble based on patient's age to complete this topic Meningococcal B Vaccine Aged Out No l onger eligible based on patient's age to complete this topic Meningococcal Vaccine Aged Out No neo shashank eligible based on patient's age to complete this topic Rotavirus Vaccines Aged Out No longer eligible based on patient's age to complete this topic Procedures Procedure Name Priority Date/Time Associated Diagnosis Comments ECG 12 LEAD UNIT PERFORMED Routine 08/22/2024 11:53 AM EDT GARZA (dyspnea on exertion) from Last 3 Months Results * ECG 12 lead unit performed (08/22/2024 11:53 AM EDT) Elsa Ro MD ECG ORDERABLES Final Result from Last 3 Months Insurance [employer]ICARE [facility] [place] Care Teams Supervisor Facepiece Line Relationship Specialty Start Date End Date Karlie Robles MD [address] [place] [phone] PCP - General Family Medicine 07/31/24
--- OUTSIDE RECORDS SUMMARY | 2024-08-22 12:23 | XMS_ITS | Patient Health Record ---
Author Organization [facility] [place] Address [address] [place] [address] Care Team Providers Care Package Sorter Name Role Phone Karlie Robles Primary Care Provider [phone] Allergies Allergen (clinical drug ingredient) Drug/Non Drug [...] 1 Mixed hyperlipidemia (E78.2) Referral Organization [facility] Referring Provider First Name Karlie Referring Provider Last Name Margaret Referring Provider Speciality Family [facility] Referred Provider Specialty Cardiology General Notes Karlie Robles 06:52:36 AM >Please refer to Cardio group in [place] (from [facility]), Karlie Robles 07/27/2024 06:52:59 AM >Attach most recent labs and most recent Endo note as well Referral Priority Routine Medications Medication SIG (Take, Route, Frequency, Duration) Notes Start Date End Date Status Ergocalciferol 64313 IU 1 tablet Orally weekly for 30 [...] Problem Status W/U Status Risk Notes Problem [id number] Type 1 diabetes mellitus with hyperglycemia (E10.65) Active confirmed Problem 901770807 Mixed hyperlipidemia (E78.2) Active confirmed Problem 72719057 Other chronic pa in (G89.29) Active confirmed Problem 9343398614 Pain in right kn ee (M25.561) Active confirmed Problem 32876204 Essential hypertension (I10) Active confirmed Problem 443411571 Obesity (BMI 30-39.9) (E66.9) Active confirmed Problem 99514126 Vitamin D deficiency (E55.9) Active confirmed Problem 273196279 BMI 37.0-37.9, adult (Z68.37) Active confirmed Problem 667639566 Acquired hypothyroidism (E03.9) Active confirmed Problem 768828688 BMI 34.0-34.9,adult (Z68.34) Active confirmed Problem 421094541 BMI 36.0-36.9,adult (Z68.36) Active confirmed Problem 381814449 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 Vital Signs Heart Rate 54 /min 06/29/2024 Respiratory Rate 16 /min 06/29/2024 Blood pressure diastolic 68 mm Hg 06/29/2024 Oximetry 96 % 06/29/2024 Height 63.50 in 06/29/2024 Blood pressure systolic 132 mm Hg 06/29/2024 Weight 218 lbs 06/29/2024 BMI 38.01 kg/m2 06/29/2024 Encounters Encounter Location Date Provider Diagnosis [facility] [address] [place] [address] 11/03/2023 Karlie Robles Type 1 diabetes mellitus with hyperglycemia E10.65 ; Mixed hyperlipidemia E78.2 ; Acquired hypothyroidism E03.9 and 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 [facility] [address] [place] [address] 03/17/2024 Karlie Robles Type 1 diabetes mellitus with hyperglycemia E10.65 ; Mixed hyperlipidemia E78.2 ; Acquired hypothyroidism E03.9 and 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 [facility] [address] [place] [address] 06/29/2024 Karlie Robles Type 1 diabetes mellitus with hyperglycemia E10.65 ; Other specified health status Z78.9 ; Mixed hyperlipidemia E78.2 ; Acquired hypothyroidism E03.9 ; Vitamin D deficiency E55.9 ; Pain in right knee M25.561 and Encounter for Medicare annual wellness exam Z00.00 [facility] [address] [place] [address] 08/01/2024 Karlie Robles Assessments Encounter Date Diagnosis (ICD Code) Assessment [...] - E78.2) Will refer to Cardio at [place] for further recommendations about cholesterol med, particularly [...] Name:Karlie calvillo, 10/12/2024 09:00:00 AM, [address] [facility], [place], [address], Insurance Providers Payer Name Payer Address Payer Phone Subscriber Number Group Number Insured Name Patient Relationship to Insured Coverage Start Date Coverage End Date [place]IC[place] [address] [place] [address] [id number] Thania Spicer Self - patient is the insured 9 MMO [address] [place], [place] [id number] Thania Spicer Self - patient is the insured 9 Medical (General) History Medical History History ICD Code Diabetes type 1 - Sees [facility] DCIS of left breast, ERPR+, 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 Inna barros - [place]) 03/29 Left Breast biopsy - DCIS (Dr. Pedro) 1 Partial hysterectomy - still has tubes a nd ovaries (Dr. Hayes) 2005
[2024-08-22 13:10] LABS: Hematocrit 42.4 % (36.0-48.0); Hemoglobin 14.1 g/dL (12.0-16.0); Immature Granulocytes Abs Auto 0.02 10^3/uL (0.00-0.03); Immature Granulocytes Pct Auto 0.2 % (0.0-0.5); Lymphocytes Absolute Auto 2.5 10^3/uL (1.2-3.8); Mean Corpuscular HGB Conc 33.3 g/dL (29.9-35.2); Mean Corpuscular Hemoglobin 29.7 pg (26.7-34.0); Mean Corpuscular Volume 89.5 fL (81.0-99.0); NT Pro B Type Natriuretic Pept 102.0 pg/mL (<=900.0); Platelet Count 293 10^3/uL (150-450); Red Blood Count 4.74 10^6/uL (4.20-5.40); White Blood Count 9.0 10^3/uL (4.0-11.0)
== END 2024-08-22 12:20 | disposition home or self-care (01) ==
PROVIDERS: PCP Family Medicine; Visit Provider Internal Medicine Interventional Cardiology
DX: R06.09 Other forms of dyspnea (principal); R07.89 Other chest pain
CPT/HCPCS: 36415; 83880; 85025

== ENCOUNTER 2024-08-31 07:50 | Outpatient (OUT) | payer MEDICARE, OTHER, SELFPAY ==
--- NOTE | 2024-08-31 08:15 | NM_ITS ---
Patient Name: CORINA CURRIE MR#: [id number] : 1950 Exam Date: 08/31/2024 Ordering Doctor: DR TREVOR RO M.D. RADIOLOGY REPORT PROCEDURE: NM GELACIO PERF SPECT REST STR COMPARISON: None. INDICATIONS: CHEST PAIN, SHORTNESS OF BREATH TECHNIQUE: Exam Description: Stress/Rest two day protocol gated SPECT Rest Imagin.1 mCi Tc-99m Cardiolite IV on 08/31/2024 Stress Imaging 30.7 mCi Tc-99m Cardiolite IV on 08/31/2024 Exercise Protocol: 0.4 mg Lexiscan given IV Heart Rate (bpm): Rest: 48 Max: 85 PMHR: 58 Blood Pressure: Rest: 168/68 Max: 144/54 Symptoms: Rest and peak stress ECG findings were pending and the exercise portion of the study was pending per attending physician [facility]. For more details, please see separate cardiac stress test report. FINDINGS: QUALITY OF STUDY: Good PERFUSION DEFECT: LOCATION: Anterior SIZE: Moderate SEVERITY: Moderate TYPE: Reversible WALL MOTION: Normal wall motion LV SIZE: 66 mL. TID / TCD: 0.6 LVEF: Calculated EF 78%. SUMMARY: Myocardial perfusion imaging study is abnormal CONCLUSION: 1. Myocardial perfusion is abnormal 2. A moderate anterior reversible perfusion defect is seen consistent with ischemia 3. Global left ventricular systolic function is hyperdynamic 4. No evidence of transient ischemic dilatation Dictated by: Trevor Ro M.D. on 09/05/2024 at 09:02 Approved by: Trevor Ro M.D. on 09/05/2024 at 09:05
--- NOTE | 2024-08-31 09:58 | PC.NURSE ---
Nursing Note Cardiac Stress Test Reviewed: Medication, allergies and patient history reviewed. Stress Test: [x ] Patient tolerated stress test well. [ ] Patient unable to tolerate walking on treadmill. Switched to Lexiscan stress test. [x ] No chest pain noted per patient [ ] Chest pain that resolved prior to leaving stress lab. [x ] No dyspnea noted. [ ] Dyspnea that resolved prior to leaving stress lab. [x ] Patient left stress lab asymptomatic and hemodynamically stable. [ ] Patient taken to the Emergency Room due to non-resolving symptoms following stress test. [ ] Patient achieved target heart rate. [ ] Patient unable to achieve target heart rate. [ ] Aminophylline administered as reversal agent to Lexiscan (Regadenoson). [ ] Nitro administered. Nursing Comments:Pt had Lexiscan test. No complaints noted and pt ambulated to cafeteria for breakfast prior to second set of images.
[2024-08-31] MEDS: REGADENOSON 0.4 MG/5 ML SYRINGE IV (10:06)
--- NOTE | 2024-09-04 17:21 | PM.STRESS ---
Stress Test Stress Test Requesting physician: Elsa Ro Procedure: This was a Lexiscan stress test with myocardial perfusion imaging performed at the [facility] on 08/31/2024. Intravenous line was secured. The patient was attached to electrocardiographic monitoring. Baseline vital signs and ECG were obtained. Lexiscan 0.4 mg was administered intravenously followed by administration of Cardiolite. The patient then went on to obtain myocardial perfusion imaging. Resting heart rate was 48 bpm and peak heart rate was 85 bpm. Resting blood pressure was 144/54 and peak blood pressure was 168/68. General Information: Reason for Stress Test: Chest pain, shortness of breath. Cardiac History and Risk Factors: Hyperlipidemia, diabetes. Resting 12 - Lead Electrocardiogram: Marked sinus bradycardia, heart rate 47 bpm, first-degree AV block, nonspecific ST changes. Stress Test: Protocol: Pharmacologic stress with Lexiscan. Exercise Capacity: Not assessed. Blood Pressure Response: Resting hypertension. Rhythm: Sinus rhythm with no arrhythmias. ST - Response: No ischemic EKG changes seen following infusion of Lexiscan. Patient Response: No symptoms. Interpretation: 1. No evidence of ischemic ECG changes seen following infusion of Lexiscan. 2. Myocardial perfusion images will be reported separately.
== END 2024-08-31 07:51 | disposition home or self-care (01) ==
LOC: NM 07:51
PROVIDERS: PCP Family Medicine; Visit Provider Internal Medicine Interventional Cardiology
DX: R06.09 Other forms of dyspnea (principal); R07.89 Other chest pain
CPT/HCPCS: 78452; 93017; A9500; J2785

== ENCOUNTER 2024-09-11 08:50 | Outpatient (OUT) | payer MEDICARE, OTHER, SELFPAY ==
--- OUTSIDE RECORDS SUMMARY | 2024-09-11 08:53 | XMS_ITS | Clinical Summary ---
Author Organization [employer] tem Address [id number] [address] [place] [address] Care Team Providers Care Agent Licensing Clerk Name Role Phone Karlie Robles MD Primary Care Provider [phone] Allergies Active Allergy Reactions Criticality Noted Date Comments Atorvastatin Calcium muscle cramps 01/13/2023 Lisinopril Cough 01/13/2023 Pravastatin Sodium muscle cramps 01/13/2023 Rosuvastatin muscle cramps 06/22/2024 Simvastatin muscle cramps 06/22/2024 Tamoxifen Citrate Vomiting 01/13/2023 Medications levothyroxine (SYNTHROID, LEVOTHROID) 137 MCG tablet Take 1 tablet (137 mcg total) by mouth in the morning. 8 Active NOVOLOG U-100 INSULIN ASPART 100 unit/mL injectionIndica tions:type 1 diabetes mellitus Inject 100 Unit under the skin in the morning. Indications: type 1 diabetes mellitus. Insulin pump. Self administers based on what she is eating. 8 Active multivit-minera ls/ferrous fum (MULTI VITAMIN ORAL) Take by mouth. Activ e Active Problems Problem Noted Date Diagnosed Date Essential hypertension 03/07/2018 Type 1 diabetes mellitus wit h retinopathy, with long-term current use of insulin 03/07/2018 Hypothyroidism 03/07/2018 Vitamin D deficiency 03/07/2018 Severe obesity (BMI 35.0-39.9) with comorbidity 03/07/2018 Ductal carcinoma in situ (DCIS) of left breast 0 10/25/2017 Cancer Staging:Clinical:Stage 0(cTis (DCIS), cN0, cM0, ER: Positive, [place]: Positive, HER2: Negative) - Unsigned Abnormal mammogram of left breast 10/12/2017 Encounters Date Type Department Care Team Description 06/22/2024 1:00 PM EDT Office Visit Lorri Maldonado [place] [facility] - Medical Oncology [address] [place] [phone] Hayes Montoya MD Ductal carcinoma in situ (DCIS) of left breast (Primary Dx) 06/22/2024 Documentation Lorri Abdullahi [facility] - Medical Oncology [address] [place] [phone] Jocelynn Tuttle RN 06/22/2024 Travel from Last 3 Months Immunizations Immunization Administration Dates Next Due Pneumococcal Conjugate 13-Valent 12/05/2015 Pneumococcal Polysaccharide 12/07/2016 Tdap 07/23/2021 Family History Medical History Relation Name Comments Diabetes Brother 1 Type 2 Diabetes Brother 2 Type 2 Stroke Father Complications f rom/Old age Other Mother Multiple Myelom a Breast cancer Neg Hx Relation Name Status Comments Brother 1 Alive Brother 2 Alive Father Mother Social History Tobacco Use Types Packs/Day Years Used Date Smoking Tobacco: Never Smokeless Tobacco: Never Tobacco Cessation:Counseling Given: Not Answered Alcohol Use Standard Drinks/Week Comments No 0 (1 standard drink = 0.6 oz pur e alcohol) PHQ-2 Answer Date Recorded Total Score 0 03/01/2018 Childcare Answer Date Recorded Childcare Unknown 07/20/2018 Employment Answer Date Recorded Employment Unknown 07/20/2018 Purpose - Life Answer Date Recorded Purpose and direction in life Unknown Comments No Sex and Gender Information Value Date Recorded Sex Assigned at Not on file Legal Sex Female 11:33 AM EDT Gender Identity Not on file Sexual Orientation Not on file Last Filed Vital Signs Vital Sign Reading Time Taken Comments Blood Pressure 153/57 06/22/2024 1:02 PM EDT Pulse 58 06/22/2024 1:02 PM EDT Temperature 36.8 C (98.3 F) 06/22/2024 1:02 PM EDT Respiratory Rate 16 06/22/2024 1:02 PM EDT Oxygen Saturation 97% 06/22/2024 1:02 PM EDT Inhaled Oxygen Concentration - - Weight 99.3 kg (219 lb) 06/22/2024 1:02 PM EDT Height 160 cm (5' 2.99 ) 06/22/2024 1:02 PM EDT Body Mass Index 38.8 06/22/2024 1:02 PM EDT Plan of Treatment Upcoming Encounters Date Type Department Care Team (Late st Contact Info) Description 11/16/2024 9:00 AM EDT Appointment [facility] - Mammography/DEXA Imaging [address] [place] [phone] Hayes Montoya MD [facility] [place] [address] 06/21/2025 10:00 AM EDT Office Visit Lorri Maldonado [facility] - Medical Oncology [address] [place] [phone] Hayes Montoya MD [address] [place] [address] Health Maintenance Due Date Last Done Comments Diabetic Ophthalmology Exam 1950 Depression Screening 1962 Adult BMI Follow Up Plan 1968 Diabetic Foot Exam 1968 Zoster (Shingles) Vaccine (1 of 2) 1969 Colonoscopy 09/01/1995 Fall Risk Screening 09/01/2015 Influenza Vaccine 10/09/2024 Mammogram 11/14/2024 11/15/2023, 10/10, 10/16/2021, Additional history exists Adult BMI Screening 06/22/2025 06/22/2024 Tobacco Screening 06/22/2025 06/22/2024 DTaP,Tdap and Td Vaccines (2 - Td or Tdap) 07/24/2031 07/23/2021 Medical Devices Implanted Type Area Heel Seat Fitter Device Identifier Shelf Expiration Date Model / Serial / Lot Clareon Uv Iol Implanted:Qty : 1 on 01/21/2023 by Luna Covarrubias MD at [facility] Lens Left: Eye [employer] 04/25/2026 [id number] 28.5 / [id number] / NA Clareon, Uv Iol, +28.0d Implanted:Qty : 1 on 02/04/2023 by Luna Covarrubias MD at [facility] Other Implant [employer] [id number] 04/26/2026 [id number] / [id number] / N/A Procedures Procedure Name Priority Date/Time Associated Diagnosis Comments MAMM SCREENING BILATERAL W CAD Routine 11/15/2023 8:47 AM EDT Encounter for screening mammogram for breast cancer from Last 3 Months or Most Recently Relevant to Health Maintenance Results * Mammography screening bilateral with CAD (11/15/2023 8:47 AM EDT) Anatomical Region Laterality Modality Breast Bilateral Mammography 11/15/2023 12:2 7 PM EDT Narrative 11/15/2023 12:29 PM EDT THANIA CURRIE 1950 [id number] EXAM: MAMM SCREENING BILATERAL W CAD, 11/15/2023 8:28 AM CLINICAL INDICATIONS: Screening, Encounter for screening mammogram for breast cancer COMPARISON: 11/06/2022, 10/16/2021, 10/03/2020 TECHNIQUE: Bilateral digital tomosynthesis MLO and CC views of the breasts were obtained, with creation of synthetic 2D views. Computer aided detection was utilized. FINDINGS: There are scattered areas of fibroglandular density. There are no suspicious masses, calcifications, or areas of architectural distortion. IMPRESSION: No mammographic evidence of malignancy. BI-RADS: BI-RADS 1 - Negative Recommendation: Routine screening mammogram in 1 year. Finalized by Renée Rashid MD on 11/15/2023 12:29 PM 1 b MAMM 1 YR FDA Accredited Performing Facility: [facility] - Mammography/DEXA Imaging [address] [facility] [id number] Procedure Note Renée Rashid MD - 11/15/2023 THANIA CURRIE 1950 [id number] EXAM: MAMM SCREENING BILATERAL W CAD, 11/15/2023 8:28 AM CLINICAL INDICATIONS: Screening, Encounter for screening mammogram forbreast cancer COMPARISON: 11/06/2022, 10/16/2021, 10/03/2020 TECHNIQUE: Bilateral digital tomosynthesis MLO and CC views of the breasts wereobtained, with creation of synthetic 2D views. Computer aided detectionwas utilized. FINDINGS: There are scattered areas of fibroglandular density. There are no suspicious masses, calcifications, or areas of architecturaldistortion. IMPRESSION: No mammographic evidence of malignancy. BI-RADS: BI-RADS 1 - Negative Recommendation: Routine screening mammogram in 1 year. Finalized by Renée Rahsid MD on 11/15/2023 12:29 PM 1 b MAMM 1 YR FDA Accredited Performing Facility: [facility] - Mammography/DEXA Imaging [address] [facility] [address] Hayes Montoya MD IMG MAMMOGRAPHY ORDERABLES Final Result from Last 3 Months or Most Recently Relevant to Health [place] [address] [facility]ICARE [facility] [place] Care Teams Agent Licensing Clerk Relationship Specialty Start Date End Date Karlie Robles MD [address] [place] [phone] PCP - General Family Medicine 05/04/18 [place]hartha [place] Endocrinology 03/01/18
--- OUTSIDE RECORDS SUMMARY | 2024-09-11 08:53 | XMS_ITS | Clinical Summary ---
Author Organization [facility] Address [address] [place] [address] Care Team Providers Care Senior Developer Name Role Phone Unavailable Primary Care Provider Unavailabl e Allergies No known active allergies Medications lisinopril (ZESTRIL, PRINIVIL) 5 mg tablet Take 5 mg by mouth once daily. Active ASCORBIC ACID (VITAMIN C ORAL) Take by mouth once daily. Active CALCIUM CARBONATE/VITAMI N D3 (VITAMIN D-3 ORAL) Take by mouth once daily. Active HYALURONATE SODIUM (HYALURONIC ACID, SODIUM, ORAL) Take by mouth once daily. Active Active Problems Problem Noted Date Diagnosed Date Left knee pain 06/18/2015 Osteoarthritis of left knee 06/18/2015 Social History Tobacco Use Types Packs/Day Years Used Date Smoking Tobacco: Former Alcohol Use Standard Drinks/Week Comments Not Asked 0 (1 standard drink = 0.6 oz pur e alcohol) Comments Unknown Sex and Gender Information Value Date Recorded Sex Assigned at Not on file Legal Sex Female 12:41 PM EDT Gender Identity Not on file Sexual Orientation Not on file Last Filed Vital Signs Vital Sign Reading Time Taken Comments Blood Pressure - - Pulse 60 07/26/2015 10:06 AM EDT Temperature - - Respiratory Rate 16 07/26/2015 10:06 AM EDT Oxygen Saturation - - Inhaled Oxygen Concentration - - Weight 90.7 kg (200 lb) 09/09/2015 10:46 AM EDT Height 162 cm (5' 3.78 ) 09/09/2015 10:46 AM EDT Body Mass Index 34.57 09/09/2015 10:46 AM EDT Plan of Treatment Health Maintenance Due Date Last Done Comments Anxiety Screening 1968 Depression Screening 1968 Hepatitis C Screening 1968 DTaP,Tdap,Td Vaccine (1 - Tdap) [address] Colonography 09/01/1995 Cologuard (FIT-DNA) 09/01/1995 Colonoscopy 09/01/1995 Colorectal Cancer Screening 09/01/1995 Diabetes Screening 09/01/1995 Fecal Occult Blood 09/01/1995 Lipid Screening 09/01/1995 Sigmoidoscopy 09/01/1995 Pneumococcal Vaccine: 50+ (1 of 1 - PCV) 2000 Shingrix Vaccine (1 of 2) 2000 Bone Density Screening 09/01/2015 Advance Directive Discussion 02/09/2024 Influenza Vaccine (#1) 2024 RSV Vaccine (1 - 1-dose 75+ series) [address] [place] [address] MEDICARE
--- OUTSIDE RECORDS SUMMARY | 2024-09-11 08:53 | XMS_ITS ---
Author Organization [employer] Address [id number] [address] [place] [address] Care Team Providers Care Wireless Telegrapher Name Role Phone Karlie Robles MD Primary Care Provider [phone] Active Problems Problem Noted Date Diagnosed Date Essential hypertension 03/07/2018 Type 1 diabetes mellitus wit h retinopathy, with long-term current use of insulin 03/07/2018 Hypothyroidism 03/07/2018 Vitamin D deficiency 03/07/2018 Severe obesity (BMI 35.0-39.9) with comorbidity 03/07/2018 Ductal carcinoma in situ (DCIS) of left breast 0 10/25/2017 Cancer Staging:Clinical:Stage 0(cTis (DCIS), cN0, cM0, ER: Positive, [place]: Positive, HER2: Negative) - Unsigned Abnormal mammogram of left breast 10/12/2017 Current Treatment and Therapy Plans No current plan information found. Past Treatment and Therapy Plans No past plan information found. Radiation Treatments * Course C1 12/21/2017 - 01/19/2018 Treatment Period Energy Fraction Dose Fractions Total Dose Plans Planned left breast, boost [LtBrsBst] 01/17/2018 - 01/19/2018 250 4 / 4 1,000 left breast 12/21/2017 - 01/19/2018 266 16 / 16 4,256 Reference Points Delivered Rx left breast^Rx left breast 12/21/2017 - 01/19/2018 5,256
--- OUTSIDE RECORDS SUMMARY | 2024-09-11 08:53 | XMS_ITS | Encounter Summary ---
Author Organization [facility] Address [address] [place] [address] Care Team Providers Care Publications Designer Name Role Phone Karlie Robles MD Primary Care Provider [phone] Encounter Details Date Type Department Care Team (Late st Contact Info) Description 09/05/2024 Telephone [facility] Heart at [facility] [address] [place] [address] Avelina White MA Social History Tobacco Use Types Packs/Day Years Used Date Smoking Tobacco: Former Cigarettes Smokeless Tobacco: Never Alcohol Use Standard Drinks/Week Comments Not Currently 0 (1 standard drink = 0.6 oz pur e alcohol) Comments Unknown Sex and Gender Information Value Date Recorded Sex Assigned at Female 08/16/2024 11:04 AM EDT Legal Sex Female 11:57 PM EDT Gender Identity Female 08/16/2024 11:04 AM EDT Sexual Orientation Heterosexual or Straight 10/2024 11:04 AM EDT documented as of this encounter Miscellaneous Notes * Telephone Encounter - Avelina White MA - 09/05/2024 3:32 PM EDT Images from the original note were not included. Regarding stress test result from 2024: Elsa Ro MD to Me Malick Blanco MD 09/05/24 11:08 AM Please let her know that her stress test is abnormal and I recommend a cardiac catheterization Please set her up for right heart catheterization and coronary angiography via right internal jugular and left radial approach with Dr. Blanco within the next 1 to 2 weeks as I am not in the aquatic laborer for a while. Thank you 09/05/24 3:30 PM Spoke with patient and informed her of stress test result and need for cath per Dr. Ro. She would like to wait a few weeks until he's in the lab again. Orders entered. I asked patient to have labs a few days prior to scheduled cath. documented in this encounter Plan of Treatment Upcoming Encounters Date Type Department Care Team (Late st Contact Info) Description 09/26/2024 10:30 AM EDT Hospital Encounter [facility] Heart [facility] [address] [place] [address] Elsa Ro MD [address] [place] [address] Abnormal cardiovascular stress test; Abnormal findings on diagnostic imaging of heart and coronary circulation 09/26/2024 10:30 AM EDT - 09/26/2024 11:30 AM EDT Surgery [facility] Heart [facility] [address] [place] [address] Elsa Ro MD [address] [place] [address] Coronary angiography 11/06/2024 11:15 AM EDT Office Visit [facility] Heart at [facility] [address] [place] [address] Elsa Ro MD [address] [place] [address] documented as of this encounter Visit Diagnoses Not on filedocumented in this encounter Care Teams Publications Designer Relationship Specialty Start Date End Date Karlie Robles MD [address] [place] [phone] PCP - General Family Medicine 07/31/24 documented as of this encounter
--- OUTSIDE RECORDS SUMMARY | 2024-09-11 08:53 | XMS_ITS | Encounter Summary ---
Author Organization [facility] Address [address] [place] [address] Care Team Providers Care Auto Parts Salesperson Name Role Phone Karlie Robles MD Primary Care Provider [phone] Encounter Details Date Type Department Care Team (Late st Contact Info) Description 09/05/2024 Orders Only [facility] Heart at [facility] [address] [place] [address] ProviderTere MD [address] [place] [id number] Social History Tobacco Use Types Packs/Day Years [...] AM EDT documented as of this encounter Plan of Treatment Upcoming Encounters Date Type Department Care Team (Late st Contact Info) Description 09/26/2024 10:30 AM EDT Hospital Encounter [facility] [address] [place] [address] Elsa Ro MD [address] [facility] [place] [address] Abnormal cardiovascular stress test; Abnormal findings on diagnostic imaging of heart and coronary circulation 09/26/2024 10:30 AM EDT - 09/26/2024 11:30 AM EDT Surgery [facility] [address] [place] [address] Elsa Ro MD [address] [facility] [address] Coronary angiography 11/06/2024 11:15 AM EDT Office Visit [facility] [address] [place] [address] Elsa Ro MD [address] [place] [address] documented as of this encounter Procedures Procedure Name Priority Date/Time Associated Diagnosis Comments LEXISCAN STRESS MYOCARDIAL PERFUSION IMAGING Routine 2024 10:30 AM EDT documented in this encounter Results * Lexiscan Stress Myocardial Perfusion Imaging (2024 10:30 AM EDT) Anatomical Region Laterality Modality Other us Historical Provider CV STRESS PROCEDURES Na l Result documented in this encounter Visit Diagnoses Not on filedocumented in this encounter Care Teams Auto Parts Salesperson Relationship Specialty Start Date End Date Karlie Robles MD [address] [place] [phone] PCP - General Family Medicine 07/31/24 documented as of this encounter
--- OUTSIDE RECORDS SUMMARY | 2024-09-11 08:53 | XMS_ITS | Encounter Summary ---
Author Organization [facility] Address [address] [place] [address] Care Team Providers Care Growth Media Mixer Mushroom Name Role Phone Karlie Robles MD Primary Care Provider [phone] Encounter Details Date Type Department Care Team (Late st Contact Info) Description 09/05/2024 Orders Only [facility] Heart at [facility] [address] [place] [address] Avelina White MA Abnormal cardiovascular stress test (Primary Dx); Abnormal findings on diagnostic imaging of heart and coronary circulation Social History Tobacco Use Types Packs/Day Years [...] Description 09/26/2024 10:30 AM EDT Hospital Encounter [facility] Lab [address] [place] [address] Elsa Ro MD [address] [facility] [address] Abnormal cardiovascular stress test; Abnormal findings on diagnostic imaging of heart and coronary circulation 09/26/2024 10:30 AM EDT - 09/26/2024 11:30 AM EDT Surgery [facility] [address] [place] [address] Elsa Ro MD [address] [place] [address] Coronary angiography 11/06/2024 11:15 AM EDT Office Visit [facility] Heart at [facility] [address] [place] [address] Elsa Ro MD [address] [place] [address] Scheduled Orders Name Type Priority Associated Diagnoses Orde r Schedule CBC and differential Lab Routine Abnormal cardiovascular stress test Expected: 09/05/2024 (Approximate), Expires: 09/05/2025 Basic metabolic panel Lab Routine Abnormal cardiovascular stress test Expected: 09/05/2024 (Approximate), Expires: 09/05/2025 documented as of this encounter Visit Diagnoses Diagnosis Abnormal cardiovascular stress test- Primary Other nonspecific abnormal cardiovascular system function study Abnormal findings on diagnostic imaging of heart and coronary circulation Abnormal cardiovascular stress test Other nonspecific abnormal cardiovascular system function study Abnormal findings on diagnostic imaging of heart and coronary circulation Abnormal cardiovascular stress test Other nonspecific abnormal cardiovascular system function study Abnormal findings on diagnostic imaging of heart and coronary circulation documented in this encounter Care Teams Growth Media Mixer Mushroom Relationship Specialty Start Date End Date Karlie Robles MD [address] [place] [phone] PCP - General Family Medicine 07/31/24 documented as of this encounter
--- OUTSIDE RECORDS SUMMARY | 2024-09-11 08:53 | XMS_ITS | Clinical Summary ---
Author Organization [facility] Address [address] [place] [address] Care Team Providers Care Briefcase Sewer Name Role Phone Karlie Robles MD Primary Care Provider [phone] Allergies Active Allergy Reactions Criticality Noted Date [...] days. 6 mL 3 08/23/19 25 Active evolocumab (Repatha SureClick) 140 mg/mL pen injectorIndication s:Mixed hyperlipidemia Inject 1 mL under the skin every 14 (fourteen) days. 6 mL 3 08/25/19 25 Active Active Problems Problem Noted Date Diagnosed Date Abnormal cardiovascular stress test 09/05/2024 Abnormal findings on diagnos tic imaging of heart and coronary circulation 09/05/2024 Essential hypertension 03/07/2018 Severe obesity (BMI 35.0-39.9) [...] Encounters Date Type Department Care Team Description 09/05/2024 Telephone [facility] [address] [facility] [place] [address] Avelina White MA 09/05/2024 Orders Only [facility] [address] [facility] [place] [address] Avelina White MA Abnormal cardiovascular stress test (Primary Dx); Abnormal findings on diagnostic imaging of heart and coronary circulation 09/05/2024 Orders Only [facility] [address] [facility] [place] [address] ProviderTere MD 08/24/2024 Orders Only [facility] [address] [facility] [place] [address] Avelina White MA Mixed hyperlipidemia (Primary Dx) 08/22/2024 11:30 AM EDT Office Visit [facility] [address] [facility] [place] [address] Elsa Ro MD GARZA (dyspnea on exertion) (Primary Dx); Other chest pain; Mixed hyperlipidemia 07/31/2024 Orders Only [facility] [address] [facility] [place] [address] Avelina White MA Mixed hyperlipidemia (Primary Dx) [...] Description 09/26/2024 10:30 AM EDT Hospital Encounter [facility] Heart and [facility]ascular Center Vascular Lab [address] [place] [address] Elsa Ro MD [address] [place] [address] Abnormal cardiovascular stress test; Abnormal findings on diagnostic imaging of heart and coronary circulation 09/26/2024 10:30 AM EDT - 09/26/2024 11:30 AM EDT Surgery [facility] Heart [facility] Lab [address] [place] [phone] Elsa Ro MD [address] [place] [address] Coronary angiography 11/06/2024 11:15 AM EDT Office Visit [facility] Heart at [place] [address] [place] [address] Elsa Ro MD [address] [place] [phone] Health Maintenance Due Date Last Done Comments CT Colonography 1950 Colonoscopy 1950 Diabetes: Hemoglobin A1C 1950 FOBT 1950 Medicare Annual Wellness (AWV) 1950 Sigmoidoscopy 1950 Diabetes: Retinopathy Screening 1960 Depression Screening 1962 Diabetes: Urine Protein Screening 1969 Zoster Vaccines (1 of 2) 2000 Fall Risk Screening 09/01/2015 FIT 12/03/2022 12/03/2021 COVID-19 Vaccine (2023-2 5 season) 2023 Influenza Vaccine (#1) 2024 Colorectal Cancer Screening 12/03/2024 FIT-DNA 12/03/2024 12/03/2021, 09/27/2018 Mammogram 11/14/2025 11/15/2023 Adult Tetanus 07/24/2031 07/23/2021 [...] PERFUSION IMAGING Routine 2024 10:30 AM EDT ECG 12 LEAD UNIT PERFORMED Routine 08/22/2024 11:53 AM EDT GARZA (dyspnea on exertion) from Last 3 Months Results * Lexiscan Stress Myocardial Perfusion Imaging (2024 10:30 AM EDT) Anatomical Region Laterality Modality Other us Historical Provider CV STRESS PROCEDURES Na luis Result * ECG 12 lead unit performed (08/22/2024 11:53 AM EDT) Elsa Ro MD ECG ORDERABLES Final Result from Last 3 Months Insurance [employer] [facility] [place] Care Teams Briefcase Sewer Relationship Specialty Start Date End Date Karlie Robles MD [address] [place] [phone] PCP - General Family Medicine 07/31/24
--- NOTE | 2024-09-11 09:05 | CA_ITS ---
Patient Name: CORINA CURRIE MR#: [id number] : 1950 Exam Date: 09/11/2024 Ordering Doctor: DR TREVOR MEZA M.D. ECHOCARDIOGRAM REPORT PROCEDURE: CA ECHO DOPPLER COMPLETE INDICATIONS: GARZA, Chest pain COMPARISON: None. DESCRIPTION: COMPLETE ECHOCARDIOGRAM Real-time transthoracic echocardiography with 2D, M-mode, spectral and color flow Doppler performed. QUALITY: Technical quality was good. LEFT VENTRICLE: Normal chamber size. Mild concentric left ventricular hypertrophy. Global left ventricular systolic function is normal. LV EF: Visual estimation of left ventricular ejection fraction is 65%. DIASTOLIC: Normal diastolic function. ATRIAL SEPTUM: LEFT ATRIUM: Normal chamber size. RIGHT ATRIUM: Normal chamber size. RIGHT VENTRICLE: Normal chamber size. Normal right ventricular systolic function. TRICUSPID VALVE: Normal mobility and thickness. No stenosis with mild regurgitation. No evidence of pulmonary hypertension. RVSP 31 mmHg. MITRAL VALVE: Mildly thickened with normal mobility. No evidence of mitral valve stenosis. There is no mitral annular calcification. Trivial mitral regurgitation. AORTIC VALVE: Normal trileaflet appearance. No visible sclerosis. Normal leaflet mobility. No evidence of aortic valve stenosis. No aortic regurgitation. AORTIC ROOT: Normal diameter and appearance, measuring 3.1 cm. The ascending aorta is normal in size measuring 3.0 cm. PULMONIC VALVE: Normal thickness and mobility. No stenosis. Trivial regurgitation. PERICARDIUM: No evidence of pericardial effusion. IVC: Collapses with inspiration. Normal size. PLEURA: CONCLUSION: 1. Mild concentric ventricular hypertrophy with normal systolic function. Estimated LVEF is 65%. 2. Normal right ventricular size and systolic function. 3. Normal diastolic function. 4. Mild tricuspid regurgitation. 5. Normal right-sided pressures. Adult Echocardiography Procedure Report Left Ventricle LVEDD (3.7 - 5.6 cm): 3.77 cm LVESD (2.2 - 4.0 cm): 2.78 cm LVIVS thickness (0.6 - 1.2 cm): 1.12 cm LVPW thickness (0.5 - 1.0 cm): 1.12 cm e': 0.07 m/s E - e': 11.73 LVOT Max Gradient: 4.40 mm[Hg] LVOT Area (cm2): 1.05 m/s Peak Velocity (LVOT): 1.05 m/s Mean Velocity (LVOT): 0.69 m/s LVOT Diameter 1.90 cm Left Ventricular Ejection Fraction: 65 % Left Atrium LA Volume Index (2D A2C): 35.45 ml/m2 Left Atrium Systolic Dimension: 3.35 cm Mitral Valve MV E to A Ratio: 0.71 Mitral Valve A-Wave Peak Velocity: 1.16 m/s Mitral Valve E-Wave Peak Velocity: 0.83 m/s Right Ventricle RV Internal Diastolic Dimension: 3.20 cm Aorta AO Root Diam: 3.06 cm Ascending Ao Diam: 2.97 cm Aortic Valve AoV Area (Peak Mulugeta): 2.28 cm2, 2.28 cm2 AoV Area (VTI): 1.71 cm2, 1.71 cm2 Peak Velocity(Antegrade Flow): 1.31 m/s Peak Gradient(Antegrade Flow): 6.82 mm[Hg] Mean Velocity(Antegrade Flow): 0.89 m/s Mean Gradient(Antegrade Flow): 3.73 mm[Hg] Velocity Time Integral: 35.41 cm Tricuspid Valve Peak Velocity (Regurgitant Flow): 2.51 m/s, 2.65 m/s, 2.67 m/s Pulmonic Valve Mean Gradient: 1.54 mm[Hg], 1.69 mm[Hg] Mean Velocity: 0.58 m/s, 0.61 m/s Peak Velocity: 0.85 m/s Peak Gradient: 2.82 mm[Hg], 3.01 mm[Hg] Right Atrium Right Atrium Systolic Pressure: 36.16 ml, 36.16 ml Dictated by: Malick Blanco M.D. on 09/11/2024 at 18:48 Approved by: Malick Blanco M.D. on 09/11/2024 at 18:56
== END 2024-09-11 08:51 | disposition home or self-care (01) ==
LOC: CARD 08:51
PROVIDERS: PCP Family Medicine; Visit Provider Internal Medicine Interventional Cardiology
DX: R06.09 Other forms of dyspnea (principal); R07.89 Other chest pain
CPT/HCPCS: 93306

== ENCOUNTER 2024-09-23 08:15 | Outpatient (OUT) | payer MEDICARE, OTHER, SELFPAY ==
--- OUTSIDE RECORDS SUMMARY | 2024-03-17 06:00 | XMS_ITS ---
Author Organization The [facility] in [place] Address [address] [place] [address] Care Team Providers Care Clam Digger Name Role Phone Karlie Robles Primary Care [...] in the morning Orally Daily Active Ergocalciferol 33678 IU 1 tablet Orally weekly for 30 [...] stable Encounters Encounter Location Date Provider [facility] [address] [place] [address] 03/17/2024 Karlie Robles Type 1 diabetes mellitus [...] Donnelly es, 10/12/2024 09:00:00 AM, [address] [place], [address], Progress Notes * Thania CURRIE LDOB:[birth year] (73 yo F)Acc No.[id number]:03/17/2024 Established Patient: Thania DELGADILLO Provider: Daniela Robles MD :1950 A ge:73 Y S ex:Female Date:03/17/2024 Address:[address] [place] [address] , [place], [place]-[id number] Check In:10:02 AM ESTCheck O ut:10:51 AM [...] soon, ordered by endo. Will obtain from [facility] LDL from recent labs was elevated at 139. She did try zetia for 2 weeks after last visit - she states she noted SOB with it, and decided to stop it. States she had her mamm in October 2023, thru Dr. Montoya - we will obtain this from [facility] also. * ROS: G eneral/Constitutional: Chills d [...] 11/25Le Partial knee replacement (Dr. Jones - [place]) 03/29Lipoma removal ilat cataract removals 01/30 * Hospitalization/Major Diagno stic Procedure: N o Hospitalization History. * Family History: F ather: . M other: , Multiple Myloma, diagnosed with Other malignant neoplasm of unspecified site. 1 son(s) , 1 daughter(s) - healthy. . * Social History: T obacco Use: T obacco Use/Smoking P atient is a n onsmoker * Medications: T akingErgocalciferol 03394 IU Tablet 1 tablet Orally weekly Levothyroxine Sodium 137 MG Tablet 1 tablet on an empty stomach in the morning Orally Daily Multi Vitamin - Tablet 1 tablet Orally Once a day NovoLOG(Insulin Aspart) 100 UNIT/ML Solution as directed Subcutaneous Taking Ergocalciferol 15065 IU Tablet 1 tablet Orally weekly Taking [...] 03/17/2024 Generated for Prema garcia/Pollo/Enedinaitting on: 0 09/23/2024 08:24 AM EDT History and Physical Notes * Examination [...]
--- OUTSIDE RECORDS SUMMARY | 2024-06-29 05:30 | XMS_ITS ---
Author Organization The [facility] in [place] Address [address] [place] [address] Care Team Providers Care Grinding Room Supervisor Name Role Phone Karlie Robles Primary Care [...] 1 Mixed hyperlipidemia (E78.2) Referral Organization [facility] Referring Provider First Name Karlie Referring Provider Last Name Margaret Referring Provider Speciality [facility] Referred Provider Specialty Cardiology General Notes Karlie Robles 06:52:36 AM >Please refer to Cardio group in [place] (from [facility]), Karlie Robles 07/27/2024 06:52:59 AM >Attach most recent labs and most recent Endo note as well Referral Priority Routine REASON FOR VISIT MWV Medications Medication SIG (Take, Route, Frequency, Duration) Notes Start Date End Date Status Ergocalciferol 73196 IU 1 tablet Orally weekly for 30 [...] 06/29/2024 Encounters Encounter Location Date Provider Diagnosis [facility] [address] [place] [address] 06/29/2024 Karlieher Robles Type 1 diabetes mellitus with hyperglycemia [...] - E78.2) Will refer to Cardio at [place] for further recommendations about cholesterol med, particularly [...] Mixed hyperlipidemia Will refer to Cardio at [place] for further recommendations about cholesterol med, particularly since you are a diabetic! Unable to tolerate statins Acquired hypothyroidism Stable, continue current med Vitamin D deficiency Make sure you are t aking a daily Vitamin D supplement, and consider checking Vit D with next labs Pain in right knee Follow up with ortho about knee pain Encounter for Medicare annua l wellness exam UTD with labs, mamm. Will be due for cologuard in December - order at next visit. Please update pneumonia vaccine at pharmacy at your convenience Referrals Referral Date Details 07/27/2024 07/27/2024, Eval and treat for Hyperlipidemia, unable to tolerate statins - also diabetic Next Appt Details Follow Up: 3-4 Months, Reaso n: DM, HLD Provider Name:aKrlie Donnelly es, 10/12/2024 09:00:00 AM, [address] [place], [address], Progress Notes * Thania CURRIE LDOB:[birth year] (73 yo F)Acc No.[id number]:06/29/2024 Progress Note Patient: Thania DELGADILLO Provider: Daniela Robles MD :1950 A ge:73 Y S ex:Female Date:06/29/2024 Address:[facility] [address], [facility], [id number] Check In:09:30 AM ESTCheck O ut:10:27 AM EST Subjective: * Chief Complaints: * [place] * HPI: G eneral: patient presents today for medicare wellness visit, patinet states she seen endocrinology recently and they were concerned about her lab work - RM 73yo female presents for [facility] Endo is concerned about her LDL being [...] eye on September 05 Had mamm at [facility] in October 2023, by Dr. Montoya - just saw onc last week and will be having mamm in Nov Last cologuard was 12/30, so will be due in 01/02 Will be done babysitting for her grandkids. Doing well on pump. Gianfranco yo Annual Wellness Visit: Type of Visit: [place] [facility] [place]ness [place] (SAWV).? Visual Acuity: N /A. Other Providers of Care: C are Team reviewed with patient: Ana calvillo, and no updates needed Physical Activity: D o you exercise regularly? Y es T ype of exercise: _ __ F [...] o you have a Durable Power of Station Chief? Y es W ould you like to [...] in a a tent, in an overnight long-term, or temporarily in someone else's home??No A [...] 11/25Le Partial knee replacement (Dr. Jones - [place]) 03/29Lipoma removal ilat cataract removals 01/30 * [...] 100 UNIT/ML Solution as directed Subcutaneous Not-Taking/PRNErgocalciferol 65573 IU Tablet 1 tablet Orally weekly Tresiba(Insulin Degludec) 100 UNIT/ML Solution 40U if not on insulin pump Subcutaneous PRN Medication List reviewed and reconciled with the patientNot-Taking/PRN Ergocalciferol 99098 IU Tablet 1 tablet Orally weekly Not-Taking/PRN [...] hyperlipidemia Notes: Will refer to Cardio at [place] for further recommendations about cholesterol med, particularly [...] MD Date: 0 06/29/2024 Generated for Prema garcia/Pollo/Shakira on: 0 09/23/2024 08:24 AM EDT History [...] Do you have a Durable Power of Station Chief? : Yes Would you like to discuss this topic tod ay?: No Other Providers of Care: Care Team mary bee with patient:: Yes, and no updates needed SDOH Agree to complete So [facility] Determinants of Health questionnaire: Yes Within the [...] in a a tent, in an overnight long-term, or temporarily in someone else's home?: No [...]
--- OUTSIDE RECORDS SUMMARY | 2024-08-01 09:39 | XMS_ITS ---
Author Organization The [facility] in [place] Address [address] [place] [address] Care Team Providers Care Tool Turret Lathe Set Up Operator Name Role Phone Karlie Robles Primary Care Provider REASON FOR VISIT referral issue Encounters Encounter Location Date Provider Diagnosis [facility] [address] [place] [address] 08/01/2024 Karlie Robles Plan Of Treatment Next Appt Details Provider Name:Karlie Donnelly es, 10/12/2024 09:00:00 AM, [address] [place], [address], Progress Notes * Thania CURRIE LDOB:[birth year] (73 yo F)Acc No.[id number]:08/01/2024 Patient: Gianfranco Thania GARLAND :1950 A ge:73 Y S ex:Female Address:[place] [address] * true * Date: Generated for Printi ng/Faxing/eTransmitting on: 0 09/23/2024 08:23 AM EDT
--- OUTSIDE RECORDS SUMMARY | 2024-09-12 10:50 | XMS_ITS | Continuity of Care Document ---
Author Organization [facility] Address [address] [place] [address] Phone Care Team Providers Care Veneer Drier Name Role Phone Karlie Robles MD Primary Care Provider Marie Harvey APRN Attending Provider Care Teams Patient Care Team Team Status: Active Member Role Status Dates Karlie Robles MD Primary Care Provider Active Patient Care Team Team Status: Inactive Member Role Status Dates Karlie Robles MD Primary Care Provider Active Start: September 12, 2024 End: September 12, 2024 Marie Harvey APRN Attending Provider Active Start: September 12, 2024 End: September 12, 2024 Chief Complaint and Reason for Visit Chief Complaint Admit Date 3 month September 12, 2024 1:5 8pm Reason for Visit Admit Date BMI 38.0-38.9,adult September 12, 2024 1:5 8pm Diabetes September 12, 2024 1:5 8pm Dietary counseling and surveillance Augu 2024 1:58pm Hyperlipidemia September 12, 2024 1:5 8pm Hypertension September 12, 2024 1:5 8pm Hypothyroid September 12, 2024 1:5 8pm Insulin pump titration September 12, 2024 1:58pm Allergies, Adverse Reactions, Alerts Allergen Type Severity Reaction Last Updated Verified Status icosapent ethyl Allergy Unknown constipation September 12, 2024 2:17pm Yes Active Sszyxlx-DUN-XhV Reductase Inhibitor Allergy Unknown weakness September 12, 2024 2:17pm Yes Active Social History Smoking Status Status Start Date End Date Date of Observa tion Never smoked tobacco (finding) June 07, 2023 8:19am Observation Status Observation Response Date of Response Legal Sex Female (finding) Sex Assigned At Female 1950 Family History Relationship Condition Age at Onset Recorded Date/T jono father Unknown mother Unknown Malignant neoplasm Unknown son Obesity Unknown Problems Active Problems Medical Problem Onset Date Status History of left breast cancer Unknown Ac tive Diabetes Unknown Active Dietary counseling and surveillance Unknown Active Hyperlipidemia Unknown Active Hypothyroid Unknown Active BMI 37.0-37.9, adult Unknown Active BMI 38.0-38.9,adult Unknown Active Insulin pump titration Unknown Active Hypertension Unknown Active Obesity (BMI 30-39.9) Unknown Active Inactive/Resolved Problems Medical Problem Onset Date Status Type 2 diabetes mellitus without complications U nknown Resolved Type 2 diabetes mellitus Unknown Resolve d Medications Medication Status Dose Units Route Directions Qty Days St art Date Stop Date End Date Instructions Adherence Insulin Aspart U-100 (Novolog U-100 Insulin Aspart) 100 unit/mL solution Discont inued 0 SUBCUT Use as Directed April 20, 2023 12:00a m June 07, 2023 8:13a m subcutaneousl y use as directed; inject 100 units via pump daily Insulin Aspart (Niacinamid e) (Fiasp U-100 Insulin) 100 unit/mL solution Discont inued 0 SUBCUT Daily May 26, 2023 12:00a m August 30, 2023 2:21p m subcutaneousl y daily; inject 100 units via insulin pump daily Levothyroxi ne 137 mcg tablet Discont inued 137 MCG PO Daily 90 June 29, 2023 8:18am 2023 9:55a m Insulin Aspart (Niacinamid e) (Fiasp U-100 Insulin) 100 unit/mL solution Discont inued 0 .ROUTE .COMPLEX August 30, 2023 2:21pm 2023 9:25a m USE 100 UNITS PER DAY VIA INSULIN PUMP DIRECTED (TO BE USED IN PLACE OF NOVOLOG) Insulin Aspart U-100 (Novolog U-100 Insulin Aspart) 100 unit/mL solution Discont inued 0 SUBCUT Use as Directed June 06, 2024 3:06pm September 04, 2024 7:16a m subcutaneousl y use as directed; BRAND NAME NOVOLOG SUKHWINDER; USE 110 UNITS PER DAY VIA INSULIN PUMP DIRECTED Insulin Aspart U-100 (Novolog U-100 Insulin Aspart) 100 unit/mL solution Discont inued 0 SUBCUT Use as Directed 110 September 04, 2024 7:16am Augus t 2024 2:38p m subcutaneousl y use as directed; BRAND NAME MANISH PRETTY; USE 110 UNITS PER DAY VIA INSULIN PUMP DIRECTED vitamin d3 + k2 Active PO September 12, 2024 12:00a m Unknown Insulin Aspart U-100 (Novolog U-100 Insulin Aspart) 100 unit/mL solution Active 0 SUBCUT Use as Directed 115 September 12, 2024 2:33pm subcutaneousl y use as directed; BRAND NAME MANISH PRETTY; USE 115 UNITS PER DAY VIA INSULIN PUMP DIRECTED Complies with drug therapy Ergocalcife rol (Vitamin D2) 50 mcg (2,000 unit) tablet Discont inued 2000 UNIT PO Daily June 07, 2023 12:00a m Febru peng 2024 9:30a m Levothyroxi ne 137 mcg tablet Discont inued 137 MCG PO Daily June 07, 2023 12:00a m June 29, 2023 8:19a m Multivitami n (One Daily Multivitami n) tablet Active 1 TAB PO Daily June 07, 2023 12:00a m Complies with drug therapy blood-gluco se sensor (Dexcom G7 Sensor) Active .Route June 07, 2023 12:00a m Insulin Aspart U-100 (Novolog U-100 Insulin Aspart) 100 unit/mL solution Discont inued 0 SUBCUT Use as Directed Novemb er 2023 1:00am Novem papa 2023 9:36a m subcutaneousl y use as directed; BRAND NAME MANISH PRETTY; USE 100 UNITS PER DAY VIA INSULIN PUMP DIRECTED Insulin Aspart U-100 (Novolog U-100 Insulin Aspart) 100 unit/mL solution Discont inued 0 SUBCUT Use as Directed Novemb er 2023 9:36am Novem papa 2023 9:37a m subcutaneousl y use as directed; BRAND NAME MANISH PRETTY; USE 110 UNITS PER DAY VIA INSULIN PUMP DIRECTED Insulin Aspart U-100 (Novolog U-100 Insulin Aspart) 100 unit/mL solution Discont inued 0 SUBCUT Use as Directed 110 Novemb er 2023 9:36am June 06, 2024 3:06p m subcutaneousl y use as directed; BRAND NAME NOVOYANCI PRETTY; USE 110 UNITS PER DAY VIA INSULIN PUMP DIRECTED Levothyroxi ne 137 mcg tablet Active 137 MCG PO Daily 90 90 Novemb er 2023 9:55am Complies with drug therapy Insulin Aspart (Niacinamid e) (Fiasp Flextouch U-100 Insulin) 100 unit/mL (3 mL) insulin pen Discont inued 0 SUBCUT Use as Directed 30 2023 12:00a m Novem 2023 9:39a m ICR 1:5 ac tid, plus Corrective 1:20 ac tid (hs if>200 half dose) If off insulin pump Insulin Degludec (Tresiba Flextouch U-100) 100 unit/mL (3 mL) insulin pen Active 0 SUBCUT Daily 15 2023 12:00a m 40 units subcutaneousl y daily; If not on insulin pump, must wait 24 hours from last dose before restarting pump Complies with drug therapy Berberine Chloride 500 mg capsule Discont inued 1500 MG PO Twice daily 2024 1:00am June 13, 2024 2:42p m Berberine Chloride 500 mg capsule Active 500 MG PO Daily June 13, 2024 2:39pm Complies with drug therapy Vital Signs Vital Reading Result Reference Range Collection Date/Time Height 63 [in_i] September 12 2:00pm Weight 99.90 kg September 12 2:00pm Heart Rate 63 /min 60-100 September 12 2:00pm Respiratory rate 18 /min 12-24 September 12, 2024 2:00pm Oxygen saturation by Pulse oximetry 96 % 95-100 September 12, 2024 2:0 0pm BP Systolic 148 mm[Hg] 100-140 September 12 2:21pm BP Diastolic 73 mm[Hg] 60-100 September 12 2:21pm BMI (Body Mass Index) 38.9 kg/m2 September 12, 2024 2:00pm Advance Directives Advance Directive Response Recorded Date/ Time Advance Directives No July 22 4:19pm Insurance Providers Guarantor Thania Mckeon Address [address] [place] [address] Contact Info. Home Phone: Payer Policy Id Subscriber's Name Subscriber Id Effectiv e Date Expiration Date [facility] [id number] Thania Mckeon [id number] Medicare [id number] Thania Mckeon [id number] Encounters Encounter Location(s) Arrival/Admit Date Discharge/Depart Date Provider(s) Departed Physician/Provi marvin [facility] September 12, 2024 1:58pm September 12, 2024 2:49pm LIBORIO Oswald Recent Diagnosis Onset Date Admit Date BMI 38.0-38.9,adult Unknown September 12, 2024 1:58pm Diabetes Unknown September 12, 2024 1:58pm Dietary counseling and surveillance Unknown September 12, 2024 1:58pm Hyperlipidemia Unknown September 12, 2024 1:58pm Hypertension Unknown September 12, 2024 1:58pm Hypothyroid Unknown September 12, 2024 1:58pm Insulin pump titration Unknown September 1:58pm Assessments Diagnosis Onset Date Resolution Status Admit Date BMI 38.0-38.9,adult acute Augus t 2024 1:58pm Diabetes acute September 12 1:58pm Dietary counseling and surveillance acute September 12, 2024 1:58pm Hyperlipidemia acute September 1:58pm Hypertension acute September 12, 2024 1:58pm Hypothyroid acute September 12, 2 025 1:58pm Insulin pump titration acute Au 2024 1:58pm Plan of Treatment Author Marie Harvey [facility] Authored September 12, 2024 2:4 9pm Diabetes mellitus Clinical Notes: 1. Controlled, diabetes with A1c of 7.2% for age/comorbities. 2. Blood glucose levels improved. According to dexcom cgm download 08/30-09/12/24: AVG SG 170. >250-6.1%, >180-31%, 70-180-63%, <70-0.1%, <54-0%. CV 26%, GMI 7.4%. Reviewed download w/ pt, infrequent incidence of hypoglycemia. Glucose above target postprandial from higher carb load meal. TDI increased- see pump changes below. Pt aherent and benefitting from insulin pump cgm use. Note: 04/17/20 c-peptide 1.0 and fasting glucose 141. 3. Patient is alert, oriented and receptive to making changes or counseling Notes: Seen for an assessment of current glucose pattern, changes in treatment plan, time was spent counseling and coordination of care related to diabetes, risks, and benefits of treatment, medications, and side effects. TOPICS REVIEWED: 1. Time was spent reviewing: a. Basic concepts of diabetes, progressive beta cell , concepts of basal/bolus/corrective insulin requirements. Basal: The goal is fasting blood glucose of 100-130/150 mg. If fasting blood glucose starts to run under 100mg 3x's/ week, decrease dose by 10%. Bolus: The goal is to hold the blood glucose level steady meal to meal. If pt. is going to have increased physical activity after a meal, decrease the schedule meal dose prior to the activity by 30-50%. If pt. skips a meal do not take this dose. Correction: The goal is to correct an elevated glucose back into the 100-150mg range b. Nutrition: Concepts of healthy diet reviewed, encouraged to decrease saturated fat in diet and increase non-starchy vegetables and fruits in diet. BMI: Pt. needs to select one small change to decrease caloric intake or increase physical activity to help decrease weight. c. Correct treatment of hypoglycemia, carry a glucose source at all times on your person, in vehicles, and at bedside. Can use glucose tablets/4, four ounces of pop or juice equal to 15 G of carbohydrate. Blood glucose should be 100 mg/dl or higher when driving. d. ADA glucose goals for age and medical complexity reviewed e. Patient questions addressed 2. Activity/exercise: Encouraged to start any form of physical activity. Start low level and increase slowly to a minimal goal of 150 minutes/week. Limit activity to what is allowed by other issues such as cardiac, pulmonary or orthopedic restrictions. 3. Standards of care: Reminded to have an annual dilated eye exam, A1C every 3 months, urine testing for microalbumin once/year, check feet daily and report any cuts or sores that do not appear to be healing. 4. Meter: Plan to check blood glucose: Please check blood glucose levels 4 times/day. Back to back meals reveal effectiveness of bolus dosing. 5. [facility]. Contact office if any issues or concerns with patterns of hypoglycemia, hyperglycemia, or diabetes medication issues. 6. Prescriptions: Alison [place]- novolog vial sent. DME: [place]-None at this time. Sample reservoir, infusion sets x2 given today. 7. Prescriptions will not be filled unless you are compliant with follow up appointments or have a follow up appointment scheduled as ordered by your provider. Refills should be requested at the time of your visit. Tandem control iq insulin pump w/ dexcom g7 cgm MN 1.64 changed to 1.78 units/hr (Total basal dosing 42.72 units/day). ICR MN 4.5 ISF MN 1:20 changed to 1:19 Target: 110 Active insulin time 5 hours Discussed w/ pt software update for tandem control iq plus 04/04 tsh 2.15, free t4 0.9 Continue Levothyroxine Sodium Tablet, 137 MCG, TAKE ONE TABLET BY MOUTH EVERY MORNING ON AN EMPTY STOMACH, p.o., Daily above target 2024 ADA Guidelines- target blood pressure < 130/80, if it can be safely attained. 04/04 ldl 139, History of statin intolerance has tried lipitor, zocor, and crestor, pravastatin with myalgia. vascepa caused constipation. 03/29/[address] coronary artery calcium score- agatston calcium score 21.91- pt reports has upcoming apt to discuss w/ pcp- see hpi. Reviewed w/ pt would recommend referral to cardiology. 2024 ADA guidelines- people with Diabetes age 40-75 at higher CV risk including those with one or more additional ASCVD risk factors, high intensity statin therapy recommended to reduce ldl by >50% of baseline and to obtain goal ldl <70 2024 ADA guidelines- people with Diabetes age 40-75 moderate-intensity statin therapy in those without ASCVD risk factors see above see above Future Tests Future scheduled test information is unavailable Pending Tests Pending diagnostic test information is unavailable Future Visits Future appointment information is unavailable Referrals to Other Providers Referral information is unavailable Future Procedures Future procedure information is unavailable Future Medications Future medication information is unavailable Patient Instructions Patient instructions are unavailable
--- OUTSIDE RECORDS SUMMARY | 2024-09-23 08:24 | XMS_ITS | Encounter Summary ---
Author Organization [facility] Address [address] [place] [address] Care Team Providers Care Senior Audit Manager Name Role Phone Karlie Robles MD Primary Care Provider [phone] Encounter Details Date Type Department Care Team (Latest Contact Info) Description 09/19/2024 Travel Social History Tobacco Use Types Packs/Day Years [...] Team (Late st Contact Info) Description 09/26/2024 8:30 AM EDT Hospital Encounter [facility] Heart [facility] [address] [place] [phone] Elsa Ro MD [address] [place] [address] [facility] [place] [address] Abnormal cardiovascular stress test; Abnormal findings on diagnostic imaging of heart and coronary circulation 09/26/2024 10:30 AM EDT - 09/26/2024 11:30 AM EDT Surgery [facility] Heart [facility] [address] [place] [phone] Elsa Ro MD [address] [facility] [place] [phone] Coronary angiography 11/06/2024 11:15 AM EDT Office Visit [facility] Heart at [facility] [address] [place] [address] Elsa Ro MD [address] [place] [address] [place] [phone] documented as of this encounter Visit Diagnoses Not on filedocumented in this encounter Care Teams Senior Audit Manager Relationship Specialty Start Date End Date Karlie Robles MD [address] [place] [phone] PCP - General Family Medicine 07/31/24 documented as of this encounter
--- OUTSIDE RECORDS SUMMARY | 2024-09-23 08:24 | XMS_ITS | Clinical Summary ---
Author Organization [employer] Address [id number] [address] [place] [address] Care Team Providers Care Sales Merchandise Associate Name Role Phone Karlie Robles MD Primary Care Provider [phone] Allergies Active Allergy Reactions Criticality Noted Date [...] Staging:Clinical:Stage 0(cTis (DCIS), cN0, cM0, ER: Positive, ND: Positive, HER2: Negative) - Unsigned Abnormal mammogram of left breast 10/12/2017 Immunizations Immunization Administration Dates Next Due Pneumococcal [...] Info) Description 11/16/2024 9:00 AM EDT Appointment [facility] - Mammography/DEXA Imaging [address] [place] [address] Hayes Montoya MD [address] [place] [address] [address] [place] [address] 06/21/2025 10:00 AM EDT Office Visit [facility] - Medical Oncology [facility] [place] [phone] Hayes Montoya MD [address] [place] [address] Health Maintenance Due Date Last Done Comments [...] 07/24/2031 07/23/2021 Medical Devices Implanted Type Area Veterinary Pathologist Device Identifier Shelf Expiration Date Model / Serial / Lot Clareon Uv Iol Implanted:Qty : 1 on 01/21/2023 by Luna Covarrubias MD at [facility] Lens Left: Eye [employer] 04/25/2026 CC60WF 28.5 / [id number] / NA Clareon, Uv Iol, +28.0d Implanted:Qty : 1 on 02/04/2023 by Luna Covarrubias MD at [facility] Other Implant [employer] [id number] 04/26/2026 CC60WF / [id number] / N/A Procedures Procedure Name Priority [...] EDT Narrative 11/15/2023 12:29 PM EDT THANIA Maldonado KUSH 1950 [id number] EXAM: MAMM SCREENING BILATERAL W CAD, 11/15/2023 [...] MAMM 1 YR FDA Accredited Performing Facility: [facility] - Mammography/DEXA Imaging [address] [facility] [address] Procedure Note Renée Rashid MD - 11/15/2023 THANIA Maldonado KUSH 1950 [id number] EXAM: MAMM SCREENING BILATERAL W CAD, 11/15/2023 [...] MAMM 1 YR FDA Accredited Performing Facility: [facility] - Mammography/DEXA Imaging [address] [facility] [address] Hayes Montoya MD IMG MAMMOGRAPHY ORDERABLES Final Result from Last 3 Months or Most Recently Relevant to Health Maintenance Insurance [employer]ARE [employer] Care Teams Sales Merchandise Associate Relationship Specialty Start Date End Date Karlie Robles MD [address] [place] [phone] PCP - General Family Medicine 05/04/18 siddhartha thorne [place] Endocrinology 03/01/18
--- OUTSIDE RECORDS SUMMARY | 2024-09-23 08:24 | XMS_ITS | Clinical Summary ---
Author Organization [facility] Address [address] [place] [address] Care Team Providers Care Natural Resources Extension Educator Name Role Phone Karlie Robles MD Primary Care Provider [phone] Allergies Active Allergy Reactions Criticality Noted Date [...] days. 6 mL 3 08/25/19 25 Active inclisiran (Leqvio) 284 mg/1.5 mL syringeIndications :Mixed hyperlipidemia Inject 1.5 mL (284 mg) under the skin 1 (one) time for 1 dose. Repeat 3 months after initial injection. Then, repeat injection every 6 months. 1.5 mL 09/13/19 25 025 Active Problems Problem Noted Date Diagnosed Date [...] Encounters Date Type Department Care Team Description 09/19/2024 Travel 09/12/2024 Orders Only [address] [place] [address] Avelina White MA Mixed hyperlipidemia (Primary Dx) 09/12/2024 Orders Only [facility] [address] [place] [address] ProviderTere MD 09/05/2024 Telephone [facility] [address] [place] [address] Avelina White MA 09/05/2024 Orders Only [facility] [address] [place] [address] Avelina White MA Abnormal cardiovascular stress test (Primary Dx); Abnormal findings on diagnostic imaging of heart and coronary circulation 09/05/2024 Orders Only [facility] [address] [place] [address] ProviderTere MD 08/24/2024 Orders Only [address] [place] [address] Avelina White MA Mixed hyperlipidemia (Primary Dx) 08/22/2024 11:30 AM EDT Office Visit [address] [place] [address] Elsa Ro MD DOE (dyspnea on exertion) (Primary Dx); Other chest pain; Mixed hyperlipidemia 07/31/2024 Orders Only [facility] Heart at [facility] [address] [place] [address] Avelina White MA Mixed hyperlipidemia (Primary [...] Description 09/26/2024 8:30 AM EDT Hospital Encounter [facility] [address] [place] [address] Elsa oR MD [address] [facility] [address] [facility] [place] [address] Abnormal cardiovascular stress test; Abnormal findings on diagnostic imaging of heart and coronary circulation 09/26/2024 10:30 AM EDT - 09/26/2024 11:30 AM EDT Surgery [facility] [address] [place] [address] Elsa Ro MD [address] [facility] [address] Coronary angiography 11/06/2024 11:15 AM EDT Office Visit [facility] Heart at [facility] [address] [place] [address] Elsa Ro MD [address] [place] [address] Health Maintenance Due Date Last Done Comments CT Colonography 1950 Colonoscopy 1950 Diabetes: Hemoglobin A1C 1950 FOBT 1950 Medicare Annual Wellness (AWV) 1950 Sigmoidoscopy 1950 Diabetes: Retinopathy Screening 1960 Depression Screening 1962 Diabetes: Urine Protein Screening 1969 Zoster Vaccines (1 of 2) 2000 Fall Risk Screening 09/01/2015 FIT 12/03/2022 12/03/2021 COVID-19 Vaccine ( - 2023-2 5 season) 2023 Influenza Vaccine (#1) 2024 [...] Procedure Name Priority Date/Time Associated Diagnosis Comments COMPLETE TRANSTHORACIC ECHO (TTE) W/WO IMAGING AGENT, STRAIN, 3D, BUBBLE STUDY Routine 09/11/2024 10:30 AM EDT LEXISCAN STRESS MYOCARDIAL PERFUSION IMAGING Routine 2024 10:30 AM EDT ECG 12 LEAD UNIT PERFORMED Routine 08/22/2024 11:53 AM EDT GARZA (dyspnea on exertion) from Last 3 Months Results * Complete Echo (TTE) w/wo Imaging Agent, Strain, 3D, Bubble Study (09/11/2024 10:30 AM EDT) Anatomical Region Laterality Modality Ultrasound Historical Provider CV ECHO PROCEDURES Final Result * Lexiscan Stress Myocardial Perfusion Imaging (2024 10:30 AM EDT) Anatomical Region Laterality Modality Other Historical Provider CV STRESS PROCEDURES Na l Result * ECG 12 lead unit performed (08/22/2024 11:53 AM EDT) Elsa Ro MD ECG ORDERABLES Final Result from Last 3 Months Insurance [employer]ICARE [employer] Care Teams Natural Resources Extension Educator Relationship Specialty Start Date End Date Karlie Robles MD [address] [place] [phone] PCP - General Family Medicine 07/31/24
--- OUTSIDE RECORDS SUMMARY | 2024-09-23 08:24 | XMS_ITS | Clinical Summary ---
Author Organization [facility] Address [address] [place] [id number] Care Team Providers Care Clinical Nursing Professor Name Role Phone Unavailable Primary Care Provider [...] - 1-dose 75+ series) [address] [place] [address] MEDICARE
--- OUTSIDE RECORDS SUMMARY | 2024-09-23 08:24 | XMS_ITS | Patient Health Record ---
Author Organization [facility] [place] Address [address] [place] [address] Care Team Providers Care Restaurant Crew Person Name Role Phone Karlie Robles Primary Care [...] Mixed hyperlipidemia (E78.2) Referral Organization [facility] Referring Provider First Name Karlie Referring Provider Last Name Margaret Referring Provider Speciality Family [facility] Referred Provider Specialty Cardiology General Notes Karlie Robles 06:52:36 AM >Please refer to Cardio group in [place] (from [facility]), Karlie Robles 07/27/2024 06:52:59 AM >Attach most recent labs and most recent Endo note as well Referral Priority Routine Medications Medication SIG (Take, Route, Frequency, Duration) Notes Start Date End Date Status Ergocalciferol 27234 IU 1 tablet Orally weekly for 30 [...] Problem Status W/U Status Risk Notes Problem [id number] Type 1 diabetes mellitus with hyperglycemia (E10.65) Active confirmed Problem 533004720 Mixed hyperlipidemia (E78.2) Active confirmed Problem 25790350 Other chronic pa in (G89.29) Active confirmed Problem 9759321452 Pain in right kn ee (M25.561) Active confirmed Problem 53602366 Essential hypertension (I10) Active confirmed Problem 062981146 Obesity (BMI 30-39.9) (E66.9) Active confirmed Problem 68493151 Vitamin D deficiency (E55.9) Active confirmed Problem 523494864 BMI 37.0-37.9, adult (Z68.37) Active confirmed Problem 234912406 Acquired hypothyroidism (E03.9) Active confirmed Problem 656676119 BMI 34.0-34.9,adult (Z68.34) Active confirmed Problem 183832161 BMI 36.0-36.9,adult (Z68.36) Active confirmed Problem 415206531 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 Vital Signs Heart Rate 54 /min 06/29/2024 Respiratory Rate 16 /min 06/29/2024 Oximetry 96 % 06/29/2024 Blood pressure diastolic 68 mm Hg 06/29/2024 Height 63.50 in 06/29/2024 Blood pressure systolic 132 mm Hg 06/29/2024 Weight 218 lbs 06/29/2024 BMI 38.01 kg/m2 06/29/2024 Encounters Encounter Location Date Provider Diagnosis [facility] [address] [place] [address] 11/03/2023 Karlie Robles Type 1 diabetes mellitus with hyperglycemia E10.65 ; Mixed hyperlipidemia E78.2 ; Acquired hypothyroidism E03.9 and 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 [place] [address] [place] [address] 03/17/2024 Karlie Robles Type 1 diabetes mellitus with hyperglycemia E10.65 ; Mixed hyperlipidemia E78.2 ; Acquired hypothyroidism E03.9 and 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 [place] [address] [place] [address] 06/29/2024 Karlie Robles Type 1 diabetes mellitus with hyperglycemia E10.65 ; Other specified health status Z78.9 ; Mixed hyperlipidemia E78.2 ; Acquired hypothyroidism E03.9 ; Vitamin D deficiency E55.9 ; Pain in right knee M25.561 and Encounter for Medicare annual wellness exam Z00.00 [place] [address] [place] [address] 08/01/2024 Karlie Robles Assessments Encounter Date Diagnosis [...] - E78.2) Will refer to Cardio at [place] for further recommendations about cholesterol med, particularly [...] Name:Karlie calvillo, 10/12/2024 09:00:00 AM, [address] [facility], [place], [address], Insurance Providers Payer Name Payer Address Payer Phone Subscriber Number Group Number Insured Name Patient Relationship to Insured Coverage Start Date Coverage End Date MEDIC[place] [address] [place] [place] [address] [id number] Thania Spicer Self - patient is the insured 9 MMO [address] [place], [place] [id number] 1 Thania Spicer Self - patient is [...] Partial knee replacement (Dr. Inna barros - [place]) 03/29 Left Breast biopsy - DCIS (Dr. Pedro) 1 Partial hysterectomy - still has tubes a nd ovaries (Dr. Hayes) 2005
--- OUTSIDE RECORDS SUMMARY | 2024-09-23 08:24 | XMS_ITS | Encounter Summary ---
Author Organization [facility] Address [address] [place] [address] Care Team Providers Care Industrial Chemicals Supervisor Name Role Phone Karlie Robles MD Primary Care Provider [phone] Encounter Details Date Type Department Care Team (Late st Contact Info) Description 09/12/2024 Orders Only [facility] Heart at [facility] [address] [place] [address] Avelina White MA Mixed hyperlipidemia (Primary Dx) Social History Tobacco Use Types Packs/Day Years [...] Description 09/26/2024 8:30 AM EDT Hospital Encounter [facility] Vascular Lab [address] [place] [phone] Elsa Ro MD [address] [facility] 1 [facility] [place] [phone] Abnormal cardiovascular stress test; Abnormal findings on diagnostic imaging of heart and coronary circulation 09/26/2024 10:30 AM EDT - 09/26/2024 11:30 AM EDT Surgery [facility] Vascular Lab [address] [place] [address] Elsa Ro MD [address] [place] [address] Coronary angiography 11/06/2024 11:15 AM EDT Office Visit [facility] Heart at [place] [address] [place] [address] Elsa Ro MD [address] [place] [address] documented as of this encounter Visit Diagnoses Diagnosis Abnormal cardiovascular stress test Other nonspecific abnormal cardiovascular system function study Abnormal findings on diagnostic imaging of heart and coronary circulation Mixed hyperlipidemia- Primary Abnormal cardiovascular stress test Other nonspecific abnormal cardiovascular system function study Abnormal findings on diagnostic imaging of heart and coronary circulation documented in this encounter Care Teams Industrial Chemicals Supervisor Relationship Specialty Start Date End Date Karlie Robles MD [address] [place] [phone] PCP - General Family Medicine 07/31/24 documented as of this encounter
--- OUTSIDE RECORDS SUMMARY | 2024-09-23 08:24 | XMS_ITS ---
Author Organization [facility] Address [id number] [address] [place] [address] Care Team Providers Care Senior Dynamics Crm Developer Name Role Phone Karlie Robles MD Primary Care Provider [phone] Active Problems Problem Noted Date Diagnosed Date Essential hypertension 03/07/2018 Type 1 diabetes mellitus wit h retinopathy, with long-term current use of insulin 03/07/2018 Hypothyroidism 03/07/2018 Vitamin D deficiency 03/07/2018 Severe obesity (BMI 35.0-39.9) with comorbidity 03/07/2018 Ductal carcinoma in situ (DCIS) of left breast 0 10/25/2017 Cancer Staging:Clinical:Stage 0(cTis (DCIS), cN0, cM0, ER: Positive, MS: Positive, HER2: Negative) - Unsigned Abnormal mammogram [...]
--- OUTSIDE RECORDS SUMMARY | 2024-09-23 08:24 | XMS_ITS | Encounter Summary ---
Author Organization [facility] Address [address] [place] [address] Care Team Providers Care Net Architect Name Role Phone Karlie Robles MD Primary Care Provider [phone] Encounter Details Date Type Department Care Team (Late st Contact Info) Description 09/12/2024 Orders Only [facility] Heart at [facility] [address] [place] [address] ProviderTere MD [address] [place] [address] Social History Tobacco Use Types Packs/Day [...] Description 09/26/2024 8:30 AM EDT Hospital Encounter [facility] Heart and Vascular Center Vascular Lab [address] [place] [address] Elsa Ro MD [address] [place] [address] Abnormal cardiovascular stress test; Abnormal findings on diagnostic imaging of heart and coronary circulation 09/26/2024 10:30 AM EDT - 09/26/2024 11:30 AM EDT Surgery [facility] Heart and Vascular Center Vascular Lab [address] [place] [address] Elsa Ro MD [address] [place] [address] Coronary angiography 11/06/2024 11:15 AM EDT Office Visit [facility] [address] [place] [address] Elsa Ro MD [address] [place] [address] documented as of this encounter Procedures Procedure Name Priority Date/Time Associated Diagnosis Comments COMPLETE TRANSTHORACIC ECHO (TTE) W/WO IMAGING AGENT, STRAIN, 3D, BUBBLE STUDY Routine 09/11/2024 10:30 AM EDT documented in this encounter Results * Complete Echo (TTE) w/wo Imaging Agent, Strain, 3D, Bubble Study (09/11/2024 10:30 AM EDT) Anatomical Region Laterality Modality Ultrasound us Historical Provider MD PETERS ECHO PROCEDURES Final Result documented in this encounter Visit Diagnoses Not on filedocumented in this encounter Care Teams Net Architect Relationship Specialty Start Date End Date Karlie Robles MD [address] [place] [phone] PCP - General Family Medicine 07/31/24 documented as of this encounter
[2024-09-23 08:41] LABS: Hematocrit 41.6 % (36.0-48.0); Hemoglobin 14.3 g/dL (12.0-16.0); Immature Granulocytes Abs Auto 0.03 10^3/uL (0.00-0.03); Immature Granulocytes Pct Auto 0.4 % (0.0-0.5); Lymphocytes Absolute Auto 2.3 10^3/uL (1.2-3.8); Mean Corpuscular HGB Conc 34.4 g/dL (29.9-35.2); Mean Corpuscular Hemoglobin 30.9 pg (26.7-34.0); Mean Corpuscular Volume 89.8 fL (81.0-99.0); Platelet Count 281 10^3/uL (150-450); Red Blood Count 4.63 10^6/uL (4.20-5.40); White Blood Count 7.7 10^3/uL (4.0-11.0)
[2024-09-23 09:10] LABS: Anion Gap 10.6; Blood Urea Nitrogen 16.0 mg/dL (7.0-18.0); Calcium 8.8 mg/dL (8.5-10.1); Carbon Dioxide 29.2 mmol/L (21.0-32.0); Chloride 107 mmol/L (98-107); Estimated GFR (African America >60 (>=60 mL/min/1.73m^2); Estimated GFR (Non-African Ame >60 (>=60 mL/min/1.73m^2); Glucose 125 mg/dL (74-106); Potassium 3.8 mmol/L (3.5-5.1); Sodium 143 mmol/L (136-145)
== END 2024-09-23 08:16 | disposition home or self-care (01) ==
PROVIDERS: PCP Family Medicine; Visit Provider Internal Medicine Interventional Cardiology
DX: R94.39 Abnormal result of other cardiovascular function study (principal)
CPT/HCPCS: 36415; 80048; 85025

== ENCOUNTER 2024-10-20 09:23 | Outpatient (RCR) | payer MEDICARE, OTHER, SELFPAY ==
[2024-10-20] MEDS: INCLISIRAN SODIUM 284 MG/1.5 ML SYRINGE SQ (09:41)
== END 2024-11-07 23:59 | disposition home or self-care (01) ==
LOC: INF 09:23
PROVIDERS: PCP Family Medicine; Visit Provider Internal Medicine Interventional Cardiology
DX: E78.5 Hyperlipidemia, unspecified (principal)
CPT/HCPCS: 96372; J1306

== ENCOUNTER 2024-11-01 08:04 | Outpatient (OUT) | payer MEDICARE, OTHER, SELFPAY ==
[2024-11-01 08:44] LABS: Anion Gap 12.5; Blood Urea Nitrogen 19.0 mg/dL (7.0-18.0); Calcium 8.8 mg/dL (8.5-10.1); Carbon Dioxide 29.1 mmol/L (21.0-32.0); Chloride 107 mmol/L (98-107); Cholesterol 176 mg/dL (<=200); Estimated GFR (African America >60 (>=60 mL/min/1.73m^2); Estimated GFR (Non-African Ame >60 (>=60 mL/min/1.73m^2); Glucose 97 mg/dL (74-106); HDL Cholesterol 46 mg/dL (40-60); Potassium 3.6 mmol/L (3.5-5.1); Sodium 145 mmol/L (136-145); Triglycerides 78 mg/dL (<=150); VLDL CHOLESTEROL 15.6 mg/dL
== END 2024-11-01 08:05 | disposition home or self-care (01) ==
LOC: LAB 08:07
PROVIDERS: PCP Family Medicine; Visit Provider Internal Medicine Interventional Cardiology
DX: I25.10 Atherosclerotic heart disease of native coronary artery without angina pectoris (principal); I25.83 Coronary atherosclerosis due to lipid rich plaque
CPT/HCPCS: 36415; 80048; 80061

== ENCOUNTER 2025-01-24 09:54 | Outpatient (RCR) | payer MEDICARE, OTHER, SELFPAY ==
[2025-01-24 09:56] VITALS: BP 159/79; PULSE 61; TEMP 36.4; O2SAT 95
[2025-01-24] MEDS: INCLISIRAN SODIUM 284 MG/1.5 ML SYRINGE SQ (10:08)
== END 2025-02-07 23:59 | disposition home or self-care (01) ==
LOC: INF 09:54
PROVIDERS: PCP Family Medicine; Visit Provider Internal Medicine Interventional Cardiology
DX: E78.5 Hyperlipidemia, unspecified (principal)
CPT/HCPCS: 96372; J1306

== ENCOUNTER 2025-01-25 09:31 | Outpatient (OUT) | payer MEDICARE, OTHER, SELFPAY ==
--- OUTSIDE RECORDS SUMMARY | 2023-09-30 04:30 | XMS_ITS ---
Author Organization The [facility] in [place] Address [address] [place] [address] Care Team Providers Care Snow Ranger Name Role Phone Karlie Robles Primary Care Provider REASON FOR VISIT -3 Month Follow Up- Encounters Encounter Location Date Provider Diagnosis [address] [address] 09/30/2023 Karlie Robles Plan Of Treatment Next Appt Details Provider Name:Karlie calvillo, 04/13/2025 09:30:00 AM, [address] [place], [address], Progress Notes * Thania CURRIE LDOB:[birth year] (74 yo F)Acc No.[id number]:09/30/2023 UNLOCKED PROGRESS NOTE Established Patient: Gianfranco KRAUSENIR Thania Maldonado :?Karlie Robles MDDOB:1950???Age:73 Y ???Sex:FemaleDate:4Phone:[phone]:[facility] [address] [place], [id number] Subjective: * Chief Complaints: * 1 . -3 Month Follow Up-. * Medical History: Objective: * Vitals: Assessment: Plan: * Treatment: * * Electronic signature of Karlie Robles MD, [phone] on 01/25/2025 at 09:34 AM ESTSign off status: PendingVisit Status:?R/S (Rescheduled) * Provider: Daniela Robles MD Date: 0 09/30/2023 Generated for Printing/Faxing/eTransmitting on:?01/25/2025 09:34 AM EST
--- OUTSIDE RECORDS SUMMARY | 2023-10-29 06:00 | XMS_ITS ---
Author Organization The [facility] in [place] Address [address] [place] [address] Care Team Providers Care Nascar Driver Name Role Phone Karlie Robles Primary Care Provider REASON FOR VISIT -4 Month Follow Up- Encounters Encounter Location Date Provider Diagnosis [address] [address] 10/29/2023 Karlie Robles Plan Of Treatment Next Appt Details Provider Name:Karlie calvillo, 04/13/2025 09:30:00 AM, [address] [place], [address], Progress Notes * Thania CURRIE LDOB:[birth year] (74 yo F)Acc No.[id number]:10/29/2023 UNLOCKED PROGRESS NOTE Established Patient: Gianfranco KRAUSENIR Thania Maldonado :?Karlie Robles MDDOB:1950???Age:73 Y ???Sex:FemaleDate:4Phone:[phone]:[facility] [address] [place], [id number] Subjective: * Chief Complaints: * 1 . -4 Month Follow Up-. * Medical History: Objective: * Vitals: Assessment: Plan: * Treatment: * * Electronic signature of Karlie Robles MD, [phone] on 01/25/2025 at 09:35 AM ESTSign off status: PendingVisit Status:?R/S (Rescheduled) * Provider: Daniela Robles MD Date: 0 10/29/2023 Generated for Printing/Faxing/eTransmitting on:?01/25/2025 09:35 AM EST
--- OUTSIDE RECORDS SUMMARY | 2024-02-15 04:00 | XMS_ITS ---
Author Organization The [facility] in [place] Address [address] [place] [address] Care Team Providers Care Mobile Sales Technician Name Role Phone Karlie Robles Primary Care Provider REASON FOR VISIT -3 Month Follow Up- Encounters Encounter Location Date Provider Diagnosis [address] [address] 02/15/2024 Karlie Robles Plan Of Treatment Next Appt Details Provider Name:Karlie calvillo, 04/13/2025 09:30:00 AM, [address] [place], [address], Progress Notes * Thania CURRIE LDOB:[birth year] (74 yo F)Acc No.[id number]:02/15/2024 UNLOCKED PROGRESS NOTE Established Patient: Gianfranco NIEVESHARRY Thania Maldonado :?Karlie Robles MDDOB:1950???Age:73 Y ???Sex:FemaleDate:02/15/2024Phone:[phone]:[facility] [address] [place], [id number] Subjective: * Chief Complaints: * 1 . -3 Month Follow Up-. * Medical History: Objective: * Vitals: Assessment: Plan: * Treatment: * * Electronic signature of Karlie Robles MD, [phone] on 01/25/2025 at 09:35 AM ESTSign off status: PendingVisit Status:?R/S (Rescheduled) * Provider: Daniela Robles MD Date: 0 02/15/2024 Generated for Printing/Faxing/eTransmitting on:?01/25/2025 09:35 AM EST
--- OUTSIDE RECORDS SUMMARY | 2025-01-12 04:30 | XMS_ITS ---
Author Organization [facility] in [place] Address [address] [place] [address] Care Team Providers Care Ambulatory Care Coordinator Name Role Phone Karlie Robles Primary Care Provider Allergies Allergen (clinical drug ingredient) Drug/Non Drug Allergy documented on EMR Reaction Allergy Type Onset Date Status atorvastatin Atorvastatin Calcium Myalgias Drug Allergy ActiverosuvastatinCrestorMyalgiasDrug AllergyActivelisinoprilLisinoprilcoughDrug AllergyActivepravastatinPravastatin SodiumMyalgiasDrug AllergyActivesimvastatin SimvastatinMyalgiasDrug AllergyActivetamoxifenTamoxifen CitrateFlu-like symptoms Drug AllergyActive REASON FOR VISIT -3 Month Follow Up- Medications Medication SIG (Take, Route, Frequency, Duration) Notes Start Date End Date Status Furosemide 40 MG 1 tablet Orally Once a day ActiveTresiba 100 UNIT/ML40U if not on insulin pump Subcutaneous PRNUnknown NovoLOG 100 UNIT/MLas directed SubcutaneousActiveErgocalciferol 61729 IU1 tablet Orally weekly; Duration: 30 days03/20/2019UnknownMulti Vitamin -1 tablet Orally Once a day; Duration: 30 day(s)ActiveLevothyroxine Sodium 137 MG Tablet1 tablet on an empty stomach in the morning Orally DailyActive Social History Tobacco Use: Social History Observation Description Date Details (start date - stop date) Never Smoker NA - NA Tobacco Use/Smoking Question Answer Notes Patient is a nonsmoker Vital Signs Weight 220.8 lbs 01/12/2025 Height 63.50 in 01/12/2025 Blood pressure systolic 130 mm Hg 01/13/20 25 Blood pressure diastolic 72 mm Hg 025 Heart Rate 70 /min 01/12/2025 Respiratory Rate 16 /min 01/12/2025 BMI 38.5 kg/m2 01/12/2025 Oximetry 97 % 01/12/2025 weight up 3 pounds in last 3 months, BP stable Encounters Encounter Location Date Provider Diagnosis [facility] [address] [place] [address] 01/12/2025 Karlie Robles Type 1 diabetes mellitus with hyperglycemia E10.65 ; Mixed hyperlipidemia E78.2 ; Chronic diastolic (congestive) heart failure I50.32 and Pain in right knee M25.561 Assessments Encounter Date Diagnosis (ICD Code) Assessment Notes Treatment Notes Treatment Clinical Notes Section Notes 01/12/2025 Type 1 diabetes mellitus with hy perglycemia (ICD-10 - E10.65) 01/12/2025Mixed hyperlipidemia (ICD-10 - E78.2)01/12/2025hronic diastolic (congestive) heart failure (ICD-10 - I50.32)01/12/2025Pain in right knee (ICD-10 - M25.561) Plan Of Treatment Next Appt Details Provider Name:Karlie Thurston Cony calvillo, 04/13/2025 09:30:00 AM, [address] [place], [address], Progress Notes * Thania CURRIE LDOB:[birth year] (74 yo F)Acc No.[id number]:01/12/2025 UNLOCKED PROGRESS NOTE Established Patient: Gianfranco DADA Thania Maldonado :?Karlie Robles MDDOB:1950???Age:74 Y ???Sex:FemaleDate:01/12/2025Phone:[phone]:[address] [facility]Lnccs In:09:29 AM ESTCheck Out:10:27 AM EST Subjective: * Chief Complaints: * 1 . -3 Month Follow Up-. * HPI: ???General:? _. ?patient presents today for a 3 month f/u.-ed She will be having second injection of Leqvio on 01/17 She has been taking the water pill every other day,and doing ok with it. Had to have repeat mamm and US and everything was ok Last saw Endo in December, and adjusted things. A1c was in the 6s! She is concerned about the weight gain, and wonders if it is her insulin causing it. Discussed her cath results again. Right knee pain - going to see Dr. Jones Feb 22, for surgery, but she is not sure if she wantsto have surgery, since she is doing better since the October injection. * ROS: ???General/Constitutional:?Chills?denies.?Fatigue?denies.?Fever?denies.?HEENT:?Nasal congestion?denies.?Sore throat?denies. Runny Nose?Denies.?Ear Pain?Denies.?Cardiovascular:?Lower Extremity Edema?denies.?Chest pain?denies.& #160;Palpitations?denies.?Respiratory:?Cough?denies.?Shortness of breath?denies.?Wheezing?denies.?Gastrointestinal:?Abdominal pain?denies.?Constipation?denies.? Diarrhea?denies.?Nausea?denies.?Genitourinary:?Urgency?denies.?Frequent urination?denies.?Painful urination?denies.?Musculoskeletal:?Body aches?Denies.?Painful joints?denies.?Weakness?denies.?Skin:?Rash?denies.?Neurologic:?Dizziness?denies.?Headache?denies.?Psychiatric:?Depression?denies.?Anxiety?denies.?Difficulty sleeping?denies.? * Medical History: D iabetes type 1 - Sees [facility], DCIS of left breast, ERPR+, HER2 neg 11/25 - s/p radiation, Hypothyroid - diagnosed in high school , Vitamin D deficiency, Hyperlipidemia - cannot tolerate statins, Lipoma removal, Heart cath - 10/02: CHF and pulmonary HTN. * Surgical History: P artial hysterectomy - still has tubes and ovaries (Dr. Hayes) 2005, Left Breast biopsy - DCIS (Dr. Pedro) 11/25, Left Partial knee replacement (Dr. Jones - [place]) 03/29, Lipoma removal 2021, Bilat cataract removals 01/30, hearth cath 09/2024. * Family History: F ather: . M other: , Multiple Myloma, diagnosed with Cancer. 1 son(s) , 1 daughter(s) - healthy. . * Social History: ???Tobacco Use:?Tobacco Use/Smoking?Patient is a?nonsmoker * Medications: T aking Furosemide 40 MG Tablet 1 tablet Orally Once a day , Taking Levothyroxine Sodium 137 MG Tablet 1 tablet on an empty stomach in the morning Orally Daily , Taking Multi Vitamin - Tablet 1 tablet Orally Once a day , Taking NovoLOG(Insulin Aspart) 100 UNIT/ML Solution as directed Subcutaneous , Unknown Ergocalciferol 01127 IU Tablet 1 tablet Orally weekly , Unknown Tresiba(Insulin Degludec) 100 UNIT/ML Solution 40U if not on insulin pump Subcutaneous PRN , Medication List reviewed and reconciled with the patient * Allergies: T amoxifen Citrate: Flu-like symptoms - Side Effects, Atorvastatin Calcium: Myalgias - Side Effects, Lisinopril: cough - Side Effects, Pravastatin Sodium: Myalgias - Side Effects, Simvastatin: Myalgias, Crestor: Myalgias. Objective: * Vitals: W t:220.8lbs, Ht: 63.50 in, BP:130/72mm Hg, HR:70/min, RR:16/min, BMI:38.5Index, Oxygen sat %:97%, Ht-cm: 161.29 cm, Wt-k.15 kg. weight up 3 pounds in last 3months, BP stable. * Examination: ???General Examination: ?GENERAL APPEARANCE:?No acute distress, Well hydrated, WellDeveloped.?NECK:?Neck supple, No thyromegaly, No cervical LAD.?LUNGS:?Clear to auscultation bilaterally, No wheezes, rales, rhonchi.?CARDIO:?Regular rate and rhythm, No murmurs, rubs, gallops.?ABDOMEN:?Soft, nontender, not distended, normal bowel sounds.?SKIN:? Warm and Dry, No suspicious lesions.?EXTREMITIES:? No edema.?NEUROLOGIC/PSYCHIATRIC:?Alert, Oriented,mood and affect appropriate.? Assessment: * Assessment: 1.?Type 1 diabetes mellitus with hyperglycemia - E10.65 (Primary)???2.?Mixed hyperlipidemia - E78.2???3.?Chronic diastolic (congestive) heart failure - I50 .32???4.?Pain in right knee - M25.561??? Plan: * Treatment: * * Electronic signature of Karlie Robles MD, [id number] on 01/25/2025 at 09:35 AM ESTSign off status: PendingVisit Status:?CHK (Check Out) * Provider: Daniela Robles MD Date: 1 03/15/2024 Generated for Printing/Faxing/eTransmitting on:?01/25/2025 09:35 AM EST History and Physical Notes * HPI (History of Present Illness) CategorySub-CategoryDetailNotesCategory NotesGeneral patient presents today for a 3 month f/u.-ed She will be having second injection of Leqvio on 01/17 She has been taking the water pill every other day,and doing ok with it. Had to have repeat mamm and US and everything was ok Last saw Endo in December, and adjusted things. A1c was in the 6s! She is concerned about the weight gain, and wonders if it is her insulin causing it. Discussed her cath results again. Right knee pain - going to see Dr. Jones Feb 22, for surgery, but she is not sure if she wantsto have surgery, since she is doing better since the October injection. Examination CategorySub-CategoryDetailNotesCategory NotesGeneral ExaminationGENERAL APPEARANCE:No acute distress, Well hydrated, Well DevelopedNECK:Neck supple, No thyromegaly, No cervical LADCARDIO:Regular rate and rhythm, No murmurs, rubs, gallopsLUNGS:Clear to auscultation bilaterally, No wheezes, rales, rhonchi ABDOMEN:Soft, nontender, not distended, normal bowel soundsSKIN:Warm and Dry, No suspicious lesionsEXTREMITIES:No edemaENMT:NEUROLOGIC/PSYCHIATRIC:Alert, Oriented, mood and affect appropriate
--- OUTSIDE RECORDS SUMMARY | 2025-01-25 09:35 | XMS_ITS ---
Author Organization [facility] Address [address] [place] [address] Care Team Providers Care Lens Inserter Name Role Phone Karlie Robles MD Primary Care Provider [phone] Active Problems ProblemNoted DateDiagnosed DateAbnormal cardiovascular stress test09/05/2024 Assessment & Plan (09/26/2024 9:57 AM EDT): No associated orders from this encounter found during lookback period of 72 hours. Abnormal findings on diagnostic imaging of heart and coronary circulation 09/05/2024 Assessment & Plan (09/26/2024 9:57 AM EDT): No associated orders from this encounter found during lookback period of 72 hours. Essential wpztnfrskozx54/28/2019Severe obesity (BMI 35.0-39.9) with comorbidity 03/07/2018Type 1 diabetes mellitus with retinopathy, with long-term current use of amvhtcx2803/07/2018Vitamin D /28/2019Ductal carcinoma in situ (DCIS) of left wepdqs8210/25/2017Abnormal mammogram of left mjspnn1310/12/2017 Acquired trigger xpbcxz4709/09/2016Dupuytren's disease of palm09/09/2016 Sohxqzorqucmyh97/02/2017Left knee pain06/18/2015Osteoarthritis of left knee 06/18/2015 Current Treatment and Therapy Plans No current plan information found. Past Treatment and Therapy Plans No past plan information found. Lifetime Dose Tracking * ChemicalLifetime DoseAutomatic EntryManual EntryFluoro Time4.37 minutes0 minutes4.37 minutesAir Wvzbt484 mGy0 uLc994 mGyDose Area Gnlrqug28,178 mGy-cm2 0 mGy-cm244,178 mGy-cm2
--- OUTSIDE RECORDS SUMMARY | 2025-01-25 09:35 | XMS_ITS ---
Author Organization [employer] [facility] Address [id number] [address] [place] [address] Care Team Providers Care Logistics Planning Engineer Name Role Phone Karlie Robles MD Primary Care Provider [phone] Active Problems ProblemNoted DateDiagnosed DateEssential qsabnmyfrfof51/28/2019Type 1 diabetes mellitus with retinopathy, with long-term current use of zhjxycj3903/07/2018 Asfwhdhyocxqtp43/28/2019Vitamin D /28/2019Severe obesity (BMI 35.0- 39.9) with koksatqhsew79/28/2019Ductal carcinoma in situ (DCIS) of left breast 10/25/2017 Cancer Staging: Clinical:Stage 0(cTis (DCIS), cN0, cM0, ER: Positive, LA: Positive, HER2: Negative) - Unsigned Abnormal mammogram of left pibrsr8310/12/2017 Current Treatment and Therapy Plans No current plan information found. Past Treatment and Therapy Plans No past plan information found. Radiation Treatments * Treatment PeriodEnergyFraction DoseFractionsTotal DosePlansPlannedleft breast, boost [LtBrsBst]01/17/2018 - 01/19/20182504 / 41,000left heaaxm3212/21/2017 - 01/19/201826616 / 164,256Reference PointsDeliveredRx left breast^Rx left oqutya8412/21/2017 - 01/19/2018?5,256
--- OUTSIDE RECORDS SUMMARY | 2025-01-25 09:35 | XMS_ITS | Clinical Summary ---
Author Organization [facility] Address [address] [facility] [place] [address] Care Team Providers Care Tier In Name Role Phone Unavailable Primary Care Provider Unavailabl e Social History Tobacco UseTypesPacks/DayYears UsedDateSmoking Tobacco: Never Assessed CommentsUnknownSex and Gender InformationValueDate RecordedSex Assigned at Not on fileLegal KznYmzsqu54/15/2023 6:56 PM EDTGender OpwuorykWfoqbs76/15/2023 6:56 PM EDTSexual OrientationNot on file Last Filed Vital Signs Vital SignReadingTime TakenCommentsBlood Jwtjocvq116/7211 12:00 PM EDT Pulse--Temperature--Respiratory Rate--Oxygen Saturation--Inhaled Oxygen Concentration--Ssqemx63.3 kg (210 lb)12/09/2017 12:00 PM EYKGhtrux069.2 cm (5' 4.25 )12/09/2017 12:00 PM EDTBody Mass Index35.7712/09/2017 12:00 PM EDT Plan of Treatment Not on file
--- OUTSIDE RECORDS SUMMARY | 2025-01-25 09:35 | XMS_ITS | Clinical Summary ---
Author Organization [facility] Address [address] [place] [address] Care Team Providers Care Php Programmer Name Role Phone Karlie Robles MD Primary Care Provider [phone] Allergies Active AllergyReactionsCriticalityNoted YxexEntvmnnqBxukyxcvwgVbiuo58/06/2023 HxtyzonrjjteEqaag10/15/2581ZhljaadnkieGjzjq53/15/2025Tamoxifen CitrateOther 01/13/2023 Medications MedicationSigDispense QuantityRefillsLast FilledStart DateEnd DateStatus NovoLOG U-100 Insulin aspart 100 unit/mL injection vial as directed Dkjlbkenadje90/26/2018Active insulin degludec (Tresiba U-100 Insulin) 100 unit/mL injection vial 40U if not on insulin pump Subcutaneous PRNActive levothyroxine (Synthroid, Levoxyl) 137 mcg tablet Take 137 mcg by mouth in the morning.10/01/2017Active alirocumab (Praluent Pen) 75 mg/mL pen injector Indications:Mixed hyperlipidemiaInject 1 mL under the skin every 14 (fourteen) days. 6 mL 5Active evolocumab (Repatha SureClick) 140 mg/mL pen injector Indications:Mixed hyperlipidemiaInject 1 mL under the skin every 14 (fourteen) days. 6 mL 5Active Additional Information Patient not taking.Reported on 09/26/2024 furosemide (Lasix) 40 mg tablet Indications:Abnormal cardiovascular stress testTake 1 tablet (40 mg) by mouth in the morning. 30 tablet 50/6Active aspirin 81 mg EC tablet Indications:Abnormal cardiovascular stress testTake 1 tablet (81 mg) by mouth in the morning. 30 tablet 50/ctive ezetimibe (Zetia) 10 mg tablet Indications:Mixed hyperlipidemiaTake 1 tablet (10 mg) by mouth once daily as directed. 90 tablet 5011/02/2025ctive Active Problems ProblemNoted DateDiagnosed DateAbnormal cardiovascular stress test09/05/2024 Assessment & Plan (09/26/2024 9:57 AM EDT): No associated orders from this encounter found during lookback period of 72 hours. Abnormal findings on diagnostic imaging of heart and coronary circulation 09/05/2024 Assessment & Plan (09/26/2024 9:57 AM EDT): No associated orders from this encounter found during lookback period of 72 hours. Essential mgixbremupma63/28/2019Severe obesity (BMI 35.0-39.9) with comorbidity 03/07/2018Type 1 diabetes mellitus with retinopathy, with long-term current use of nygawsi0903/07/2018Vitamin D dbejsodyxi26/28/2019Ductal carcinoma in situ (DCIS) of left auexrx2910/25/2017Abnormal mammogram of left vjgmba2010/12/2017 Acquired trigger vbckgc1009/09/2016Dupuytren's disease of palm09/09/2016 Qgixoejqatskhh76/02/2017Left knee pain06/18/2015Osteoarthritis of left knee 06/18/2015 Encounters DateTypeDepartmentCare HuzwGyvygyyzvuz35/25/2025Orders Only [facility] [address] [place] [address] Avelina White MA Mixed hyperlipidemia (Primary Dx)11/01/2024Telephone [facility] [address] [place] [address] Avelina White MA from Last 3 Months Family History Medical HistoryRelationNameCommentsNo Known ProblemsFatherNo Known Problems MotherRelationNameStatusCommentsFatherMother Social History Tobacco UseTypesPacks/DayYears UsedDateSmoking Tobacco: FormerCigarettes Smokeless Tobacco: Never Tobacco Cessation:Counseling Given: Not Answered Alcohol UseStandard Drinks/WeekCommentsNot Currently0 (1 standard drink = 0.6 oz pure alcohol)CommentsUnknownSex and Gender InformationValueDate Recorded Sex Assigned at OtvpqSgbhvn34/09/2025 11:04 AM EDTLegal AatAtwsro22/29/2022 11:57 PM EDTGender JzmqixjhRetsrm34/09/2025 11:04 AM EDTSexual Orientation Heterosexual or Tppbyped54/09/2025 11:04 AM EDT Last Filed Vital Signs Vital SignReadingTime TakenCommentsBlood Xrczecqh139/4608 1:45 PM EDT Ajaie432609/26/2024 1:45 PM EDTTemperature--Respiratory Zykc630309/26/2024 1:30 PM EDTOxygen Zrllcapkcv66%09/26/2024 1:45 PM EDTInhaled Oxygen Concentration-- Csoerh57.3 kg (219 lb)08/22/2024 11:43 AM GALUkxhdd815.3 cm (5' 3.5 )08/22/2024 11:43 AM EDTBody Mass Index38.19008/22/2024 11:43 AM EDT Plan of Treatment Health MaintenanceDue DateLast DoneCommentsCT Kaxcezhvfmdh97/24/1951Colonoscopy 1950iabetes: Hemoglobin A1C1950FOBT1950Medicare Annual Wellness (AWV)1950 7459Pntqvbrislvwp31/24/1951Diabetes: Retinopathy Screening 1960epression Swxdruwow86/24/1963Diabetes: Urine Protein Screening 1969Zoster Vaccines (1 of 2)2000Fall Risk Awahdnoll47/24/2016FIT 2COVID-19 Vaccine ( - season)2024Influenza Vaccine (#1)2024olorectal Cancer Hzpccikvq57/26/2025FIT-DNA12/03/2024 12/03/2021, 09/27/20187863Xqcvswoao31/07/110285/dult Qldvjuv4907/24/2031 07/23/2021neumococcal Vaccine: 50+ CxlrrWmyvnwkma53/30/2017, 12/05/2015HIB VaccinesAged OutNo longer eligible based on patient's age to complete this topic HPV VaccinesAged OutNo longer eligible based on patient's age to complete this topicIPV VaccinesAged OutNo longer eligible based on patient's age to complete this topicMeningococcal B VaccineAged OutNo longer eligible based on patient's age to complete this topicMeningococcal VaccineAged OutNo longer eligible based on patient's age to complete this topicRotavirus VaccinesAged OutNo longer eligible based on patient's age to complete this topic Insurance Care Teams Team MemberRelationshipSpecialtyStart DateEnd Karlie Robles MD [address] [place] [phone] [facility]/31/[facility]
--- OUTSIDE RECORDS SUMMARY | 2025-01-25 09:35 | XMS_ITS | Clinical Summary ---
Author Organization [facility] Address [address] [place] [address] Care Team Providers Care Meat Stocker Name Role Phone Unavailable Primary Care Provider Unavailabl e Allergies No known active allergies Medications MedicationSigDispense QuantityRefillsLast FilledStart DateEnd DateStatus lisinopril (ZESTRIL, PRINIVIL) 5 mg tablet Take 5 mg by mouth once daily.Active ASCORBIC ACID (VITAMIN C ORAL) Take by mouth once daily.Active CALCIUM CARBONATE/VITAMIN D3 (VITAMIN D-3 ORAL) Take by mouth once daily.Active HYALURONATE SODIUM (HYALURONIC ACID, SODIUM, ORAL) Take by mouth once daily.Active Active Problems ProblemNoted DateDiagnosed DateLeft knee pain06/18/2015Osteoarthritis of left knee06/18/2015 Social History Tobacco UseTypesPacks/DayYears UsedDateSmoking Tobacco: FormerAlcohol Use Standard Drinks/WeekCommentsNot Asked0 (1 standard drink = 0.6 oz pure alcohol) CommentsUnknownSex and Gender InformationValueDate RecordedSex Assigned at BirthNot on fileLegal SjzJlitdn12/05/2016 12:41 PM EDTGender IdentityNot on fileSexual OrientationNot on file Last Filed Vital Signs Vital SignReadingTime TakenCommentsBlood Pressure--Osohi5254/17/2016 10:06 AM EDTTemperature--Respiratory Trlf311207/26/2015 10:06 AM EDTOxygen Saturation-- Inhaled Oxygen Concentration--Pqcfju62.7 kg (200 lb)09/09/2015 10:46 AM EDT Svksvx519 cm (5' 3.78 )09/09/2015 10:46 AM EDTBody Mass Index34.57009/09/2015 10:46 AM EDT Plan of Treatment Health MaintenanceDue DateLast DoneCommentsAnxiety Drjbdxadt37/24/1969Depression Onbmlearn14/24/1969Hepatitis C Hiiojxukf64/24/1969DTaP,Tdap,Td Vaccine (1 - Tdap)1969Mammogram Gsurmrmex48/24/1991CT Frliajfsepuv05/24/1996Cologuard (FIT-DNA)09/01/19951260Bjguypdewys77/24/1996Colorectal Cancer Lkembookx12/24/1996 Diabetes Kficyxwqq97/24/1996Fecal Occult Blood09/01/1995Lipid Screening 09/01/19954331Bjsdsytxrctva88/24/1996Pneumococcal Vaccine: 50+ (1 of 1 - PCV) 2000Shingrix Vaccine (1 of 2)2000Bone Density Burnspjnj83/24/2016 Advance Directive Xnrwgdzqbz39/01/2025ovid-19 Vaccine (1 - 2024- season) 2024Influenza Vaccine (#1)2024RSV Vaccine (1 - 1-dose 75+ series) [address] [place] [address]
--- OUTSIDE RECORDS SUMMARY | 2025-01-25 09:36 | XMS_ITS | Clinical Summary ---
Author Organization [employer] Address [id number] [address] [place] [address] Care Team Providers Care Meter Attendant Name Role Phone Kralie Robles MD Primary Care Provider [phone] Allergies Active AllergyReactionsCriticalityNoted DateCommentsAtorvastatin Calciummuscle dicvhr0003/16/20224778ZzyoulnxinSddhw16/06/2023ravastatin Sodiummuscle cramps 01/13/2023Rosuvastatinmuscle heshev1906/22/2024Simvastatinmuscle iimkaf6206/22/2024 Tamoxifen ZjrwnttPwolucff91/06/2023 Medications MedicationSigDispense QuantityRefillsLast FilledStart DateEnd DateStatus levothyroxine (SYNTHROID, LEVOTHROID) 137 MCG tablet Take 1 tablet (137 mcg total) by mouth in the morning.10/01/2017Active NOVOLOG U-100 INSULIN ASPART 100 unit/mL injection Indications:type 1 diabetes mellitusInject 100 Unit under the skin in the morning. Indications: type 1 diabetes mellitus. Insulin pump.Self administers based on what she is eating.10/03/2017Active multivit-minerals/ferrous fum (MULTI VITAMIN ORAL) Take by mouth.Active Active Problems ProblemNoted DateDiagnosed DateEssential pxwwrsrpobzp02/28/2019Type 1 diabetes mellitus with retinopathy, with long-term current use of npbzzdr9503/07/2018 Cnfnsjnoqdziiv70/28/2019Vitamin D qpdilyojlh45/28/2019Severe obesity (BMI 35.0- 39.9) with pjoelipfvma93/28/2019Ductal carcinoma in situ (DCIS) of left breast 10/25/2017 Cancer Staging: Clinical:Stage 0(cTis (DCIS), cN0, cM0, ER: Positive, FL: Positive, HER2: Negative) - Unsigned Abnormal mammogram of left fdhvje3610/12/2017 Encounters DateTypeDepartmentCare SxjwCgetdvauqsh11/25/2025 2:08 PM EST - 01/02/2025 11:59 PM ESTHospital Encounter [facility] - [facility]trasound [address] [place] [phone] Abnormal mammogram Discharge Disposition: Home01/02/2025 1:51 PM EST - 01/02/2025 2:07 PM EST Hospital Encounter [facility] - Mammography/DEXA Imaging [address] [place] [phone] Abnormal mammogram Discharge Disposition: Home01/02/20254573Craouv18/27/2025Results Follow-Up Lorri Maldonado [facility] - Medical Oncology [address] [place] [phone] Hayes Montoya MD Mammography screening bilateral with CAD11/30/2024 1:26 PM EDT - 11/30/2024 11:59 PM EDTHospital Encounter [facility] [address] [place] [phone] Hayes Montoya MD Encounter for screening mammogram for malignant neoplasm of breast Discharge Disposition: Home11/30/2024Travelfrom Last 3 Months Immunizations ImmunizationAdministration DatesNext DuePneumococcal Conjugate 13-Valent 12/05/2015Pneumococcal Nngpbhzgwmxzya96/30/8505Vwyv06/15/2022 Family History Medical HistoryRelationNameCommentsDiabetesBrother 1Type 2DiabetesBrother 2Type 2StrokeFatherComplications from/Old ageOtherMotherMultiple MyelomaBreast cancer Neg HxRelationNameStatusCommentsBrother 1AliveBrother 2AliveFatherDeceasedMother Social History Tobacco UseTypesPacks/DayYears UsedDateSmoking Tobacco: NeverSmokeless Tobacco: Never Tobacco Cessation:Counseling Given: Not Answered Alcohol UseStandard Drinks/WeekCommentsNo0 (1 standard drink = 0.6 oz pure alcohol)PHQ-2AnswerDate RecordedTotal Mlrhd625ChildcareAnswerDate UdgkxwesOfrvevkfdRkmihql38/12/2019EmploymentAnswerDate RecordedEmploymentUnknown 07/20/2018Purpose - LifeAnswerDate RecordedPurpose and direction in lifeUnknown 1CommentsNoSex and Gender InformationValueDate RecordedSex Assigned at BirthNot on fileLegal XyiTthphn94/06/2015 11:33 AM EDTGender IdentityNot on fileSexual OrientationNot on file Last Filed Vital Signs Vital SignReadingTime TakenCommentsBlood Cxuvinzf188/57006/22/2024 1:02 PM EDT Zkhis657106/22/2024 1:02 PM ADPRfcaoxtvrns20.8 ??C (98.3 ??F)06/22/2024 1:02 PM EDTRespiratory Mzzi902806/22/2024 1:02 PM EDTOxygen Ixsxtqblou86%06/22/2024 1:02 PM EDTInhaled Oxygen Concentration--Varmjq40.3 kg (219 lb)06/22/2024 1:02 PM EDT Xkwuld049 cm (5' 2.99 )06/22/2024 1:02 PM EDTBody Mass Index38.8006/22/2024 1:02 PM EDT Plan of Treatment DateTypeDepartmentCare Team (Latest Contact Info)Vsfbdgkmpmy30/14/2026 10:00 AM EDTOffice Visit Lorri Maldonado [facility] - Medical Oncology [address] [place] [phone] Hayes Montoya MD [address] [place], [place] [id number] Health MaintenanceDue DateLast DoneCommentsDiabetic Ophthalmology Exam1950 Depression Vwlwtbply66/24/1963Adult BMI Follow Up Plan1968Diabetic Foot Exam1968Zoster (Shingles) Vaccine (1 of 2)08/31/19696696Rlzrrmnypmv03/24/1996 RSV ( or age 60+ yrs) (1 - Risk 60-74 years 1-dose series)2010Fall Risk Omxaoxzrb66/24/2016Influenza Xozohll5110/09/2024dult BMI Bayeyubvh04/15/2026 06/22/2024Tobacco Scgdkowhj27/3733Pcjhhqwte18, 11/30/2024, 11/15/2023, Additional history existsDTaP,Tdap and Td Vaccines (2 - Td or Tdap) Medical Devices ImplantedTypeAreaManufacturerDevice IdentifierShelf Expiration DateModel / Serial / LotClareon Uv Iol Implanted:Qty: 1 on 01/21/2023 [facility] [employer]/[id number] 28.5 / [id number] / NAClareon, Uv Iol, +28.0d Implanted:Qty: 1 on 02/04/2023 by Luna Covarrubias MD at [facility] ImplantAlcon Surgical [id number] / [id number] / N/A Procedures Procedure NamePriorityDate/TimeAssociated DiagnosisCommentsUS BREAST RT LIMITED Zydccif3501/02/2025 2:18 PM EST Abnormal mammogram MAMM DIAGNOSTIC UNILAT RT W SAGTdxpact27/25/2025 2:03 PM EST Abnormal mammogram MAMM SCREENING BILATERAL W LKKAfvaquz47/23/2025 1:42 PM EDT Encounter for screening mammogram for malignant neoplasm of breast from Last 3 Months Results * Ultrasound breast limited right (01/02/2025 2:18 PM EST)Anatomical Region LateralityModalityBreastRightUltrasoundSpecimen (Source)Anatomical Location / LateralityCollection Method / VolumeCollection TimeReceived Time01/02/2025 2:21 PM EST Narrative 01/02/2025 2:24 PM EST THANIA L CURRIE 1950 [id number], [id number] EXAM: MAMM DIAGNOSTIC UNILAT RT W CAD, US BREAST RT LIMITED, 01/02/2025 1:51 PM CLINICAL INDICATIONS: Abnormal mammogram, COMPARISON: 11/30/2024 TECHNIQUE: Supplemental views of the right breast were obtained for diagnostic workup. Digital tomosynthesis images were obtained, with creation of synthetic 2D views. Computer aided detection was utilized. In addition, sonographic evaluation of the right breast was performed. FINDINGS: There are scattered areas of fibroglandular density. ?? Redemonstration of the previously described mass in the retroareolar region of the right breast. Targeted ultrasound will be performed for further characterization. ?? Right Breast Ultrasound, Limited TECHNIQUE: Multiple real-time culp-scale images of the right breast in the 6 o'clock axis were performed. Color Doppler was utilized to assess vascular flow. FINDINGS: Ultrasound confirms the presence of a 5 mm cyst felt to represent the mammographic abnormality. No solid nodules are identified. No evidence of malignancy is seen. COMBINED ??IMPRESSION: Mammographic and sonographic evaluation right breast confirm the presence of a 5 mm cyst in the 6:00 retroareolar region of the right breast. No evidence of malignancy is seen. BI-RADS: BI-RADS 2 - Benign RECOMMENDATION: ??Routine screening mammogram in 1 year. Patient was given the results before leaving the department. Finalized by Constantino Aviles MD on 01/02/2025 2:24 PM 2 b MAMM 1 YR Procedure Note Constantino Aviles MD - 01/02/2025 THANIA Maldonado KUSH 1950 [id number], [id number] EXAM: MAMM DIAGNOSTIC UNILAT RT W CAD, US BREAST RT LIMITED, 51:51 PM CLINICAL INDICATIONS: Abnormal mammogram, COMPARISON: 11/30/2024 TECHNIQUE: Supplemental views of the right breast were obtained for diagnosticworkup. Digital tomosynthesis images were obtained, with creation ofsynthetic 2D views. Computer aided detection was utilized. In addition,sonographic evaluation of the right breast was performed. FINDINGS: There are scattered areas of fibroglandular density. Redemonstration of the previously described mass in the retroareolarregion of the right breast. Targeted ultrasound will be performed forfurther characterization. Right Breast Ultrasound, Limited TECHNIQUE: Multiple real-time culp-scale images of the right breast in the6 o'clock axis were performed. Color Doppler was utilized to assessvascular flow. FINDINGS: Ultrasound confirms the presence of a 5 mm cyst felt to represent the mammographic abnormality. No solid nodules are identified. No evidence of malignancy is seen. COMBINED IMPRESSION: Mammographic and sonographic evaluation right breast confirm the presenceof a 5 mm cyst in the 6:00 retroareolar region of the right breast. Noevidence of malignancy is seen. BI-RADS: BI-RADS 2 - Benign RECOMMENDATION: Routine screening mammogram in 1 year. Patient was given the results before leaving the department. Finalized by Constantino Aviles MD on 01/02/2025 2:24 PM 2 b MAMM 1 YR Authorizing ProviderResult TypeResult StatusChang Aguilar Montoya MDIMG ORDERABLESFinal Result * Mammography diagnostic unilateral right with CAD (01/02/2025 2:03 PM EST) Anatomical RegionLateralityModalityBreastRightMammographySpecimen (Source) Anatomical Location / LateralityCollection Method / VolumeCollection Time Received Time01/02/2025 2:21 PM EST Narrative 01/02/2025 2:24 PM EST THANIA CURRIE 1950 [id number], [id number] EXAM: MAMM DIAGNOSTIC UNILAT RT W CAD, US BREAST RT LIMITED, 01/02/2025 1:51 PM CLINICAL INDICATIONS: Abnormal mammogram, COMPARISON: 11/30/2024 TECHNIQUE: Supplemental views of the right breast were obtained for diagnostic workup. Digital tomosynthesis images were obtained, with creation of synthetic 2D views. Computer aided detection was utilized. In addition, sonographic evaluation of the right breast was performed. FINDINGS: There are scattered areas of fibroglandular density. ?? Redemonstration of the previously described mass in the retroareolar region of the right breast. Targeted ultrasound will be performed for further characterization. ?? Right Breast Ultrasound, Limited TECHNIQUE: Multiple real-time culp-scale images of the right breast in the 6 o'clock axis were performed. Color Doppler was utilized to assess vascular flow. FINDINGS: Ultrasound confirms the presence of a 5 mm cyst felt to represent the mammographic abnormality. No solid nodules are identified. No evidence of malignancy is seen. COMBINED ??IMPRESSION: Mammographic and sonographic evaluation right breast confirm the presence of a 5 mm cyst in the 6:00 retroareolar region of the right breast. No evidence of malignancy is seen. BI-RADS: BI-RADS 2 - Benign RECOMMENDATION: ??Routine screening mammogram in 1 year. Patient was given the results before leaving the department. Finalized by Constantino Aviles MD on 01/02/2025 2:24 PM 2 b MAMM 1 YR FDA Accredited Performing Facility: [facility] - Mammography/DEXA Imaging [address] [facility] [address] Procedure Note Constantino Aviles MD - 01/02/2025 THANIA CURRIE 1950 [id number], [id number] EXAM: MAMM DIAGNOSTIC UNILAT RT W CAD, US BREAST RT LIMITED, 51:51 PM CLINICAL INDICATIONS: Abnormal mammogram, COMPARISON: 11/30/2024 TECHNIQUE: Supplemental views of the right breast were obtained for diagnosticworkup. Digital tomosynthesis images were obtained, with creation ofsynthetic 2D views. Computer aided detection was utilized. In addition,sonographic evaluation of the right breast was performed. FINDINGS: There are scattered areas of fibroglandular density. Redemonstration of the previously described mass in the retroareolarregion of the right breast. Targeted ultrasound will be performed forfurther characterization. Right Breast Ultrasound, Limited TECHNIQUE: Multiple real-time culp-scale images of the right breast in the6 o'clock axis were performed. Color Doppler was utilized to assessvascular flow. FINDINGS: Ultrasound confirms the presence of a 5 mm cyst felt to represent the mammographic abnormality. No solid nodules are identified. No evidence of malignancy is seen. COMBINED IMPRESSION: Mammographic and sonographic evaluation right breast confirm the presenceof a 5 mm cyst in the 6:00 retroareolar region of the right breast. Noevidence of malignancy is seen. BI-RADS: BI-RADS 2 - Benign RECOMMENDATION: Routine screening mammogram in 1 year. Patient was given the results before leaving the department. Finalized by Constantino Aviles MD on 01/02/2025 2:24 PM 2 b MAMM 1 YR FDA Accredited Performing Facility: [facility] - Mammography/DEXA Imaging [address] [facility] [address] Authorizing ProviderResult TypeResult StatusChang Aguilar Montoya [facility] MAMMO[facility]AP[facility] ORDERABLESFinal Result * (ABNORMAL) Mammography screening bilateral with CAD (11/30/2024 1:42 PM EDT) Anatomical RegionLateralityModalityBreastBilateralMammographySpecimen (Source) Anatomical Location / LateralityCollection Method / VolumeCollection Time Received Time12/04/2024 8:59 AM EDT Narrative 12/04/2024 9:03 AM EDT THANIA Maldonado KUSH 1950 [id number] EXAM: MAMM SCREENING BILATERAL W CAD, 11/30/2024 1:26 PM CLINICAL INDICATIONS: Screening, Encounter for screening mammogram for malignant neoplasm of breast COMPARISON: 11/15/2023 and additional prior mammograms TECHNIQUE: Bilateral digital tomosynthesis MLO and CC views of the breasts were obtained, with creation of synthetic 2D views. Computer aided detection was utilized. FINDINGS: There are scattered areas of fibroglandular density. There is a 6 mm mass of the 6:00 retroareolar right breast. There are no additional suspicious masses, calcifications, or areas of architectural distortion. IMPRESSION: 1. There is a 6 mm mass of the 6:00 retroareolar right breast. This is indeterminate. This could represent a small cyst. Additional mammographic and possibly sonographic images are recommended for further characterization. 2. Negative mammogram of the left breast. BI-RADS: BI-RADS 0 - Incomplete. Needs additional imaging evaluation. RECOMMENDATION: ??Additional imaging required. RISK ASSESSMENT: TC Lifetime risk: --%. Tyrer-Cuzick score not calculated. The TC risk model does not apply to patients with a personal history of breast malignancy, those over the age of 84, male, or transgender patients. Finalized by Renée Rashid MD on 12/04/2024 9:03 AM 0A b ADDITIONAL I FDA Accredited Performing Facility: [facility] - Mammography/DEXA Imaging [address] [facility] [address] Procedure Note Renée Rashid MD - 12/04/2024 THANIA CURRIE 1950 [id number] EXAM: MAMM SCREENING BILATERAL W CAD, 11/30/2024 1:26 PM CLINICAL INDICATIONS: Screening, Encounter for screening mammogram formalignant neoplasm of breast COMPARISON: 11/15/2023 and additional prior mammograms TECHNIQUE: Bilateral digital tomosynthesis MLO and CC views of the breastswere obtained, with creation of synthetic 2D views. Computer aideddetection was utilized. FINDINGS: There are scattered areas of fibroglandular density. There is a 6 mm mass of the 6:00 retroareolar right breast. There are no additional suspicious masses, calcifications, or areas of architectural distortion. IMPRESSION: 1. There is a 6 mm mass of the 6:00 retroareolar right breast. This is indeterminate. This could represent a small cyst. Additional mammographicand possibly sonographic images are recommended for furthercharacterization. 2. Negative mammogram of the left breast. BI-RADS: BI-RADS 0 - Incomplete. Needs additional imaging evaluation. RECOMMENDATION: Additional imaging required. RISK ASSESSMENT: TC Lifetime risk: --%. Tyrer-Cuzick score not calculated. The TC risk model does not apply topatients with a personal history of breast malignancy, those over the ageof 84, male, or transgender patients. Finalized by Renée Rashid MD on 12/04/2024 9:03 AM 0A b ADDITIONAL I FDA Accredited Performing Facility: [facility] - Mammography/DEXA Imaging [address] [place] [address] Authorizing ProviderResult TypeResult StatusChang Aguilar Montoya MDIMG MAMMOGRAPHY ORDERABLESFinal Result from Last 3 Months Insurance Care Teams Team MemberRelationshipSpecialtyStart DateEnd Karlie Robles MD [place] [phone] PCP - GeneralFamily Medicine05/04/18 [place] Endocrinology03/01/18
--- OUTSIDE RECORDS SUMMARY | 2025-01-25 09:37 | XMS_ITS | Patient Health Record ---
Author Organization [facility] in [place] Address [address] [place] [address] Care Team Providers Care Compounder Flavorings Name Role Phone Karlie Robles Primary Care Provider Allergies Allergen (clinical drug ingredient) Drug/Non Drug Allergy documented on EMR Reaction Allergy Type Onset Date Status atorvastatin Atorvastatin Calcium Myalgias Drug Allergy ActiverosuvastatinCrestorMyalgiasDrug AllergyActivelisinoprilLisinoprilcoughDrug AllergyActivepravastatinPravastatin SodiumMyalgiasDrug AllergyActivesimvastatin SimvastatinMyalgiasDrug AllergyActivetamoxifenTamoxifen CitrateFlu-like symptoms Drug AllergyActive Reason For Referral Reason Eval and treat for H yperlipidemia, unable to tolerate statins - also diabetic Diagnosis 1 Mixed hyperlipidemia (E78.2) Referral Organization [facility] Referring Provider First Name Karlie Referring Provider Last Name Margaret Referring Provider Speciality [facility] Referred Provider Specialty Cardiology General Notes [...] Subcutaneous PRNUnknown NovoLOG 100 UNIT/MLas directed SubcutaneousActiveErgocalciferol 01802 IU1 tablet Orally weekly; Duration: 30 days03/20/2019UnknownLevothyroxine Sodium 137 MG Tablet1 tablet on an empty stomach in the morning Orally DailyActiveMulti Vitamin -1 tablet Orally Once a day; Duration: 30 day(s)Active Immunizations Vaccine Route Administration Date Status Comme nts Pneumococcal (Pneumovax 23) Unknown 12/07/2016 Administ ered Pneumococcal (Prevnar 13)Lzjzmwd2812/05/20159020QkynkncdeuhnKtytDrbbmez46/15/2022 Administeredgiven in ER Social History Tobacco Use: Social History Observation Description Date Details (start date - stop date) Never Smoker NA - NA Tobacco Use/Smoking Question Answer Notes Patient is a nonsmoker Alcohol Screen (Audit-C) Question Answer Notes Did you have a drink containing alcohol in the p ast year? No Auevsm6LkjnezngbhfnsfHtvpohwe Problems Problem Type SNOMED Code ICD Code Onset Dates Problem Status W/U Status Risk Notes Problem Hyperglycemia due to type 1 diabetes mellitus (564701374865668) Type 1 diabetes mellitus with hyperglycemia (E10.65) ActiveconfirmedProblemMixed hyperlipidemia (810865189)Mixed hyperlipidemia (E78.2)ActiveconfirmedProblemChronic pain (00417305)Other chronic pain (G89.29) ActiveconfirmedProblemChronic diastolic heart failure (060989702)Chronic diastolic (congestive) heart failure (I50.32)ActiveconfirmedProblemPain of right knee region (finding) (774383543321131)Pain in right knee (M25.561)Active confirmedProblemEssential hypertension (83379222)Essential hypertension (I10) ActiveconfirmedProblemObesity (877268299)Obesity (BMI 30-39.9) (E66.9)Active confirmedProblemVitamin D deficiency (06779839)Vitamin D deficiency (E55.9) ActiveconfirmedProblemObese class II (307209498835838)BMI 37.0-37.9, adult (Z68.37)ActiveconfirmedProblemAcquired hypothyroidism (067371978)Acquired hypothyroidism (E03.9)ActiveconfirmedProblemBody mass index 30.00 to 34.99 (482858249947302)BMI 34.0-34.9,adult (Z68.34)ActiveconfirmedProblemObese class II (740278449195792)BMI 36.0-36.9,adult (Z68.36)ActiveconfirmedProblemCarcinoma in situ of breast (241609908)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)Activeconfirmed Vital Signs Heart Rate 70 /min 01/12/2025 weight up 3 todd nds in last 3months, BP stable Respiratory Rate 16 /min 01/12/2025 weight up 3 pounds in last 3months, BP stable Oximetry 97 % 01/12/2025 weight up 3 todd nds in last 3months, BP stable Blood pressure diastolic 72 mm Hg 01/12/2025 torres ght up 3 pounds in last 3months, BP stable Height 63.50 in 01/12/2025 weight up 3 todd nds in last 3months, BP stable Blood pressure systolic 130 mm Hg 01/12/2025 weig ht up 3 pounds in last 3months, BP stable Weight 220.8 lbs 01/12/2025 weight up 3 todd nds in last 3months, BP stable BMI 38.5 kg/m2 01/12/2025 weight up 3 todd nds in last 3months, BP stable Encounters Encounter Location Date Provider Diagnosis [facility] [address] [place] [address] 08/01/2024 [facility] [address] [place] [address]/28/2025[address] [place] [address]/29/2025 [facility] [address] [place] [address] 10/12/2024Heather MansfieldType 1 diabetes mellitus with hyperglycemia E10.65 ; Mixed hyperlipidemia E78.2 and Chronic diastolic (congestive) heart failure I50.32[facility] [address] [place] [address]/07[facility] with [facility] E10.65 ; Mixed hyperlipidemia E78.2 ; Acquired hypothyroidism E03.9 and 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 [place] [address] 01/12/2025Heather HaynesType 1 diabetes mellitus with hyperglycemia E10.65 ; Mixed hyperlipidemia E78.2 ; Chronic diastolic(congestive) heart failure I50.32 and Pain in right knee M25.561 Assessments Encounter Date Diagnosis (ICD Code) Assessment Notes Treatment Notes Treatment Clinical Notes Section Notes 03/17/2024 Type 1 diabetes mellitus with hy perglycemia (ICD-10 - E10.65) Continue current management and follow up with Endo as directed We will be watching for the CT for calcium score 03/17/2024Mixed hyperlipidemia (ICD-10 - E78.2)May need to refer on to cardio if calcium score is high to discuss other options for cholesterol control, with your xpsesbte46/22/2025Type 1 diabetes mellitus with hyperglycemia (ICD-10 - E10.65)Stable, continue current meds, and follow up with Endocrinology as ffwyzfpx92/22/2025Other specified health status (ICD-10 - Z78.9) Unable to tolerate statins due to myalgias, with multiple statins! Refer to Cardio for further input, especially since you are a diabetic 01/12/2025Type 1 diabetes mellitus with hyperglycemia (ICD-10 - E10.65) 01/12/2025Mixed hyperlipidemia (ICD-10 - E78.2)10/12/2024Type 1 diabetes mellitus with hyperglycemia (ICD-10 - E10.65)Continue current meds, and follow up with endo as ndvezvel94/04/2025Mixed hyperlipidemia (ICD-10 - E78.2)I strongly recommend trying the injection for cholesterol, especially after the cath tulskcq9710/12/2024hronic diastolic (congestive) heart failure (ICD-10 - I50.32)Please start the water pill - I think it will really help with your leg swelling, and possibly withSOB also01/12/2025hronic diastolic (congestive) heart failure (ICD-10 - I50.32)06/29/2024Mixed hyperlipidemia (ICD-10 - E78.2) Will refer to Cardio at [place] for further recommendations about cholesterol med, particularly since you are a diabetic! Unable to tolerate statins 5Acquired hypothyroidism (ICD-10 - E03.9)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 (ICD-10 - D17.1) Stable, continue to bmqhzzi30/22/2025Acquired hypothyroidism (ICD-10 - E03.9) Stable, continue current med01/12/2025Pain in right knee (ICD-10 - M25.561) 06/29/2024Vitamin D deficiency (ICD-10 - E55.9)Make sure you are taking a daily Vitamin D supplement, and consider checking Vit D with next labs06/29/2024Pain in right knee (ICD-10 - M25.561)Follow up with ortho about knee pain06/29/2024 Encounter for Medicare annual wellness exam (ICD-10 - Z00.00) UTD with labs, mamm. Will be due for cologuard in December - order at next visit. Please update pneumonia vaccine at pharmacy at your convenience Plan Of Treatment Pending Test Test Name Order Date LIPID PANEL (CHOL/TRIG/HDL/LDL) 06/24/19 24 Next Appt Details Provider Name:Karlie calvillo, 04/13/2025 09:30:00 AM, [address] [place], [address], Insurance Providers Payer Name Payer Address Payer Phone Subscriber Number Group Number Insured Name Patient Relationship to Insured Coverage Start Date Coverage End Date [place] [address] [place] [address] [id number] Albina Spicerf - patient is the [id number] [place], [place] [id number], Paula Self - patient is the [id number] 2018 Medical (General) History Medical History History ICD Code Diabetes type 1 - [facility] DCIS of left breast, ERPR+, HER2 neg 11/25 - s/p radiationHypothyroid - diagnosed in high schoolVitamin D deficiencyHyperlipidemia - cannot tolerate statinsLipoma removalHeart cath - 10/02: CHF and pulmonary HTNSurgical History Surgery Date(Month/Year) Partial hysterectomy - still has tubes a nd ovaries (Dr. Hayes) 2005 [facility] cath 09/2024 Bilat cataract removals 01/30 Lipoma removal 2021 Left Partial knee replacement (Dr. Inna barros - [place]) 03/29 Left Breast biopsy - DCIS (Dr. Pedro) 1
[2025-01-25 10:51] LABS: Cholesterol 151 mg/dL (<=200); HDL Cholesterol 45 mg/dL (40-60); Triglycerides 87 mg/dL (<=150); VLDL CHOLESTEROL 17.4 mg/dL
== END 2025-01-25 09:32 | disposition home or self-care (01) ==
LOC: LAB 09:33
PROVIDERS: PCP Family Medicine; Visit Provider Internal Medicine Interventional Cardiology
DX: E78.2 Mixed hyperlipidemia (principal)
CPT/HCPCS: 36415; 80061